=== PATIENT | male | born 1950 ===

== ENCOUNTER 2020-11-10 09:24 | Outpatient (REF) | payer MEDICARE, SELFPAY ==
[2020-11-10 10:02] LABS: MANUAL DIFF FLAG NO
[2020-11-10 10:24] LABS: Basophils Absolute Auto 0.1 X10*3/uL (0.0-0.2); Basophils Percent Auto 1.1 % (0-2); Eosinophils Absolute Auto 0.4 X10*3/uL (0.0-0.4); Hemoglobin 14.5 g/dl (14.0-18.0); Imm Gran Abs Auto 0.02 X10*3/uL (0.00-0.03); Imm Gran Pct Auto 0.3 % (0.0-0.4); Lymphocytes Absolute Auto 2.2 X10*3/uL (1.2-4.9); Lymphocytes Percent Auto 30.6 % (20-40); Mean Corpuscular Hemoglobin 30.1 pg (27.0-33.0); Mean Corpuscular Volume 91.5 fL (80-98); Mean Platelet Volume 11.9 fL (9.4-12.4); Monocytes Absolute Auto 0.4 X10*3/uL (0.1-1.2); Monocytes Percent Auto 6.1 % (2-11); Neutrophils Percent Auto 55.9 % (45-73); Platelet Count 172 X10*3/uL (160-400); Red Blood Count 4.81 X10*6/uL (4.60-5.80); White Blood Count 7.2 X10*3/uL (4.8-10.8)
[2020-11-10 10:30] LABS: Estimated Average Glucose 157 mg/dL; Hemoglobin A1c % 7.1 %
[2020-11-10 11:04] LABS: Alanine Aminotransferase 13 U/L (0-40); Albumin Level 4.4 g/dL (3.5-5.0); Alkaline Phosphatase 39 U/L (39-117); Anion Gap 13 (12-20); Aspartate Amino Transferase 21 U/L (5-37); Bilirubin Total 0.5 mg/dL (0.0-1.0); Blood Urea Nitrogen 22 mg/dL (9-16); Calcium 9.7 mg/dL (8.4-10.2); Carbon Dioxide 25 mmol/L (22-29); Chloride 103 mmol/L (96-108); Cholesterol 171 mg/dL; Estimated Glomerular Filt Rate 56; Glucose Fasting 131 mg/dL (60-99); HDL Cholesterol 31 mg/dL; LDL Cholesterol Calculated 114 mg/dl; Potassium 4.8 mmol/L (3.3-5.1); Sodium 136 mmol/L (135-145); Total Protein 7.6 g/dL (6.5-8.0); Triglycerides 131 mg/dL
[2020-11-10 11:06] LABS: Creatinine Urine 161.05 mg/dL; Microalbum/Creatinine Ratio Ur 3.1 ug/mg cr
[2020-11-10 11:28] LABS: TSH reflex Free T4 1.01 uIU/mL (0.32-4.0)
[2020-11-10 11:35] LABS: Folate 13.3 ng/mL (> or = 4.0); Vitamin B12 313 pg/mL (200-900)
[2020-11-14 17:33] LABS: Vitamin D 25-OH, D2 <4 ng/mL; Vitamin D 25-OH, D3 25 ng/mL; Vitamin D 25-OH, Total 25 ng/mL (30-100)
[2020-11-15 12:31] LABS: Testosterone, Free 50.7 pg/mL (30.0-135.0); Testosterone, Total 461 ng/dL (250-1100)
== END 2020-11-10 09:25 | disposition home or self-care (01) ==
LOC: HO.LAB 09:24
PROVIDERS: PCP Internal Medicine; Visit Provider Internal Medicine
DX: E11.9 Type 2 diabetes mellitus without complications (principal); E55.9 Vitamin D deficiency, unspecified; D64.9 Anemia, unspecified; E78.5 Hyperlipidemia, unspecified
CPT/HCPCS: 36415; 80053; 80061; 82043; 82306; 82607; 82746; 83036; 84402; 84403; 84443; 85025

== ENCOUNTER 2023-04-23 09:24 | Outpatient (AMB) | payer MEDICARE, MEDICAID, SELFPAY ==
[2023-04-23 09:26] VITALS: BP 140/82; PULSE 76; O2SAT 99; BMI 31.5
--- NOTE | 2023-04-23 09:26 | MHC.PC.OV ---
Vital Signs 04/23/23 09:26 Height 5 ft 7.5 in Weight 204 lb 0.2 oz BMI 31.5 BP 140/82 H Blood Pressure Location Lt brachial Position Sitting Pulse 76 Pulse Source Pulse Oximeter Pulse Oximetry (%) 99 Oxygen Delivery Method Room Air Intake Visit Reasons: Medication Follow Up Entertainment Musician Required: Yes Entertainment Musician Language: Citizen Of [place] Allergies No Known Allergies Allergy (Verified 04/23/23 09:52) Medication List - Last Reconciled 04/23/23 by GIANNI Dela Cruz blood sugar diagnostic (OneTouch Verio test strips) Test 3 times Daily cholecalciferol (vitamin D3) 50 mcg PO DAILY 90 days ibuprofen 800 mg PO Q8H PRN 30 days lancets (FreeStyle Lancets) Test 3 times Daily lisinopril 10 mg PO DAILY 90 days metformin 850 mg PO DAILY 90 days paroxetine HCl 20 mg PO DAILY 90 days pravastatin 10 mg PO DAILY 90 days Tobacco use date assessed: 04/23/23 Fall risk assessment: No Falls in past year Last assessed Fall Risk: 04/23/23 HPI Medication Follow Up HPI Details Patient is a 73-year-old male who presents today to follow-up on his medications. Patient of Dr. Zamudio. Medical history significant for hypercholesterolemia, depression, diabetes, hypertension. Patient reports that he is compliant with medications and denies side effects. Patient will call for diabetic eye exam. Denies shortness of breath or chest pain. 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 [facility] Medical History Mild recurrent major depression Chronic fatigue Back pain Depression Pure hypercholesterolemia Diabetes mellitus Essential hypertension Surgical History History of surgery on arm History of appendectomy Family History Father No problems noted. Mother Hypertension Stroke Maternal Aunt Diabetes Social History Housing: Apartment Alcohol intake: never Patient Tobacco Use Status: Never used Tobacco e-Cigarette/Vaping Use: Never Used Second Hand Smoke Exposure: No service: No Current occupational status: disabled Cognitive needs: No Hearing needs: No Vision needs: No Questionnaire PHQ-9 Over the last 2 weeks, how often have you been bothered by any of the following problems? 1. Little interest or pleasure in doing things: not at all 2. Feeling down, depressed, or hopeless: not at all 3. Trouble falling or staying asleep, or sleeping too much: not at all 4. Feeling tired or having little energy: not at all 5. Poor appetite or overeating: not at all 6. Feeling bad about yourself - or that you are a failure or have let yourself or your family down: not at all 7. Trouble concentrating on things, such as reading the newspaper or watching television: not at all 8. Moving or speaking so slowly that other people could have noticed. Or the opposite - being so fidgety or restless that you have been moving around a lot more than usual: not at all 9. Thoughts that you would be better off or of hurting yourself in some way: not at all Total score: 0 Depression Screening Interpretation: Negative Depression Screening Done: Yes 76748 - PHQ-9 Billing: Yes Source: Developed by Drs. Marco A Oneill, Ania Marcano, Varghese Bran and colleagues, with an educational gabriella from [employer]. Thrive Questionnaire Date Thrive assessed: 11/09/20 AUDIT C Alcohol Use Questionnaire (AUDIT-C) 1. How often do you have a drink containing alcohol?: Never 3. How often do you have six or more drinks on one occasion?: Never Total Score: 0 Score Reviewed/Action Taken: No JEMAL-7 AMB Questionnaire JEMAL-7 Date JEMAL - 7 assessed: 04/23/23 Feeling nervous, anxious, or on edge: 0 = Not at all Not being able to stop or control worryin = Not at all Worrying too much about different things: 0 = Not at all Trouble relaxin = Not at all Being so restless that it is hard to sit still: 0 = Not at all Becoming easily annoyed or irritable: 0 = Not at all Feeling afraid as if something awful might happen: 0 = Not at all Total JEMAL-7 score (0-4 normal; 5-9 mild; 10-14 moderate; 15-21 severe): 0 Source: Developed by Ania Baxter. Jeet, Varghese Bran and colleagues, with an educational gabriella from [employer]. JEMAL-7 Assessment Billing JEMAL-7 Assessment Tool: JEMAL-7 Assessment 14597 Review of Systems Const Denies body aches, Denies chills, Denies fever(s) and Denies headache(s) ENT Denies dizziness, Denies otalgia, Denies headache(s), Denies nasal discharge, Denies sinus pain and Denies sore throat Card Denies chest pain, Denies edema, Denies lightheadedness and Denies dyspnea Resp Denies cough, Denies dyspnea and Denies wheezing GI Denies abdominal pain Denies dysuria Musc Denies myalgias Neuro Denies dizziness and Denies headache(s) Aller/Immun Denies wheezing Physical exam (Primary Care) Vital Signs: Last Vital Signs Pulse 76 04/23/23 09:26 BP 140/82 H 04/23/23 09:26 Pulse Ox 99 04/23/23 09:26 Oxygen Delivery Method Room Air 04/23/23 09:26 BMI result Body Mass Index 31.5 Tobacco/Smoking Status: Tobacco use Status Tobacco use date assessed 04/23/23 04/23/23 09:27 Patient Tobacco Use Status Never used Tobacco 04/23/23 09:26 e-Cigarette/Vaping Use Never Used 04/23/23 09:26 PHQ-9: PHQ-9 Score PHQ-9: Total score 0 04/23/23 09:55 Depression Screening Interpretation: Negative Thrive Assessment: Date of Thrive Assessment Date Thrive assessed 11/09/20 04/23/23 09:26 Const General: cooperative and no acute distress Orientation/consciousness: patient oriented x3 HENMT Head: Yes normocephalic and Yes atraumatic Face and sinus: Yes sinuses nontender Mouth: oropharynx normal and moist mucous membranes Throat: Yes posterior oropharynx normal Eyes General: appearance normal, both eyes and all related structures Neck Neck: Yes normal visual inspection and Yes full ROM Resp Effort & Inspection: normal respiratory effort and able to speak in complete sentences Auscultation: clear to auscultation bilaterally, no crackles, no rales, no rhonchi and no wheezes Cardio Rate: regular rate Rhythm: regular rhythm Heart sounds: S1 normal heart sound present and S2 normal heart sound present GI Auscultation: normal bowel sounds Skin General skin exam: no rashes or lesions noted Neuro General: patient oriented x3 Gait exam (Neuro): Normal gait present Extrem General: Yes full ROM and No edema Results AMB Hemoglobin A1c AMB Hemoglobin A1c 6.9 % Last Edit by JAC Vann on 04/23/23 09:56 Results Reviewed Results Reviewed: Laboratory Last Values Hgb A1c (Clinic) 6.9 % (4.0-6.0) H 04/23/23 09:26 Assessment and Plan Assessment & Plan (1) Mild recurrent major depression: Code(s): F33.0 - Major depressive disorder, recurrent, mild Plan: Stable with paroxetine (2) Essential hypertension: Code(s): I10 - Essential (primary) hypertension Plan: Goal BP equal or less than 140/90 Continue lisinopril Low-sodium diet (3) Diabetes mellitus: Code(s): E11.9 - Type 2 diabetes mellitus without complications Qualifiers: Diabetes mellitus type: type 2 Diabetes mellitus shelter insulin use: without 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 use Diabetes mellitus complication status: without complication Qualified Code(s): E11.9 - Type 2 diabetes mellitus without complications Plan: A1c 6.9 today, goal less than 7 Continue metformin Low-carbohydrate diet (4) Pure hypercholesterolemia: Code(s): E78.00 - Pure hypercholesterolemia, unspecified Plan: Continue pravastatin Low-cholesterol diet Lipid panel ordered Orders: Orders Microalbumin, Random (w Creat) Today E11.9 - Type 2 diabetes mellitus without complications AMB Hemoglobin A1c Today E11.9 - Type 2 diabetes mellitus without complications Lipid Panel Today E78.00 - Pure hypercholesterolemia, unspecified Comprehensive [place]. Panel Fast Today I10 - Essential (primary) hypertension Coding Level of Care Code Est Pt Level 4 (07260) Diagnoses Mild recurrent major depression F33.0 Essential hypertension I10 Type 2 diabetes mellitus without complication, without long-term current use of insulin E11.9 Diabetes mellitus type: type 2 Diabetes mellitus shelter insulin use: without 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 use Diabetes mellitus complication status: without complication Pure hypercholesterolemia E78.00 Additional Codes JEMAL-7 Assessment Billing - JEMAL-7 Assessment Tool: JEMAL-7 Assessment 32644 ([id number])
== END 2023-04-23 11:27 | disposition home or self-care (01) ==
PROVIDERS: PCP Internal Medicine; Visit Provider Nurse Practitioner Family
DX: E11.9 Type 2 diabetes mellitus without complications (principal); F33.0 Major depressive disorder, recurrent, mild; I10 Essential (primary) hypertension; E78.00 Pure hypercholesterolemia, unspecified
CPT/HCPCS: 83036; 99214

== ENCOUNTER 2023-08-01 10:26 | Outpatient (REF) | payer OTHER, SELFPAY ==
[2023-08-01 12:30] LABS: Alanine Aminotransferase 10 U/L (0-40); Albumin Level 4.3 g/dL (3.5-5.0); Alkaline Phosphatase 44 U/L (39-117); Anion Gap 12 (12-20); Aspartate Amino Transferase 17 U/L (5-37); Bilirubin Total 0.5 mg/dL (0.0-1.0); Blood Urea Nitrogen 27 mg/dL (9-16); Calcium 10.1 mg/dL (8.4-10.2); Carbon Dioxide 27 mmol/L (22-29); Chloride 105 mmol/L (96-108); Cholesterol 192 mg/dL (<200); Estimated Glomerular Filt Rate 58; Glucose Fasting 129 mg/dL (60-99); HDL Cholesterol 34 mg/dL (>40); LDL Cholesterol Calculated 144 mg/dL (<100); Potassium 4.3 mmol/L (3.3-5.1); Sodium 140 mmol/L (135-145); Total Protein 7.9 g/dL (6.5-8.0); Triglycerides 72 mg/dL (<150)
[2023-08-01 13:01] LABS: Creatinine Urine 204.89 mg/dL; Microalbum/Creatinine Ratio Ur 6.8 ug/mg cr (<30)
== END 2023-08-01 10:27 | disposition home or self-care (01) ==
LOC: HO.LAB 10:26
PROVIDERS: PCP Internal Medicine; Visit Provider Nurse Practitioner Family
DX: E11.9 Type 2 diabetes mellitus without complications (principal); E78.00 Pure hypercholesterolemia, unspecified; I10 Essential (primary) hypertension
CPT/HCPCS: 36415; 80053; 80061; 82043; 82570

== ENCOUNTER 2023-08-27 10:14 | Outpatient (AMB) | payer MEDICARE, MEDICAID, SELFPAY ==
--- NOTE | 2023-08-27 10:19 | MHC.PC.OV ---
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 Accompanied by: Self / Same As Patient Allergies No Known Allergies Allergy (Verified 08/27/23 10:38) Medication List - Last Reconciled 08/27/23 by Nahomy Ovalles MD blood sugar diagnostic (True Metrix Glucose Test Strip) Use 1 test strip once a day blood sugar diagnostic (OneTouch Verio test strips) Use 1 test strip once a day blood-glucose meter (OneTouch Verio Flex Meter) As directed cholecalciferol (vitamin D3) 50 mcg PO DAILY 90 days ibuprofen 800 mg PO Q8H PRN 30 days lancets (FreeStyle Lancets) Test 3 times Daily lancets Use 1 lancet once a day lisinopril 10 mg PO DAILY 90 days metformin 850 mg PO DAILY 90 days paroxetine HCl 20 mg PO DAILY 90 days pravastatin 10 mg PO DAILY 90 days Tobacco use date assessed: 08/27/23 Fall risk assessment: No Falls in past year Last assessed Fall Risk: 08/27/23 Dental Screening Dental Screen Date: 08/27/23 Did you have a dental visit in the last 12 months?: Yes Did you have a dental problem in the last 6 months where you did not have access to dental care?: No Was dental information given to patient?: Patient has dentist HPI HPI Comments History of Present Illness Details This is a 73-year-old male with diabetes mellitus type 2, mild recurrent major depression, hypertension and pure hypercholesterolemia that comes today for follow-up on his conditions. A1c within goal. Depression stable with paroxetine. Blood pressure well controlled with lisinopril. LDL not on goal and I will change pravastatin 10 mg to simvastatin 20 mg. Denies any chest pain or shortness of breath. No fever or cough. Compliant with medications. [facility] Medical History Mild recurrent major depression Chronic fatigue Back pain Depression Pure hypercholesterolemia Diabetes mellitus Essential hypertension Surgical History History of surgery on arm History of appendectomy Family History Father No problems noted. Mother Hypertension Stroke Maternal Aunt Diabetes Social History Housing: Apartment Alcohol intake: never Patient Tobacco Use Status: Never used Tobacco e-Cigarette/Vaping Use: Never Used Second Hand Smoke Exposure: No service: No Current occupational status: disabled Cognitive needs: No Hearing needs: No Vision needs: No Questionnaire PHQ-9 Over the last 2 weeks, how often have you been bothered by any of the following problems? 1. Little interest or pleasure in doing things: not at all 2. Feeling down, depressed, or hopeless: not at all 3. Trouble falling or staying asleep, or sleeping too much: not at all 4. Feeling tired or having little energy: not at all 5. Poor appetite or overeating: not at all 6. Feeling bad about yourself - or that you are a failure or have let yourself or your family down: not at all 7. Trouble concentrating on things, such as reading the newspaper or watching television: not at all 8. Moving or speaking so slowly that other people could have noticed. Or the opposite - being so fidgety or restless that you have been moving around a lot more than usual: not at all 9. Thoughts that you would be better off or of hurting yourself in some way: not at all Total score: 0 Depression Screening Interpretation: Negative Depression Screening Done: Yes 79774 - PHQ-9 Billing: Yes Source: Developed by Drs. Marco A Oneill, Ania Marcano, Varghese Bran and colleagues, with an educational gabriella from [employer]. Thrive Questionnaire Date Thrive assessed: 08/27/23 I am a: Patient What is your living situation today?: I have a steady place to live Within the past 12 months, did the food you bought not last and you didn't have the money to get more?: Never true Within the past 12 months, did you worry whether your food would run out before you got money to buy more?: Never true Do you have trouble paying for medicines?: No Do you have trouble getting transportation to medical appointments?: No Do you have trouble paying your heating and electricity bill?: No Do you have trouble taking care of your child, family member or friend?: No Do you have trouble with day-to-day activities such as bathing, preparing meals, shopping, managing finances, etc.?: No Are you currently unemployed and looking for a job?: No Are you interested in more education?: No Please select the resources that you would like help with: None Currently or been in a relationship where the following occur: no concerns reported THRIVE Score: 0 AUDIT C Alcohol Use Questionnaire (AUDIT-C) 1. How often do you have a drink containing alcohol?: Never Total Score: 0 JEMAL-7 AMB Questionnaire JEMAL-7 Date JEMAL - 7 assessed: 08/27/23 Feeling nervous, anxious, or on edge: 0 = Not at all Not being able to stop or control worryin = Not at all Worrying too much about different things: 0 = Not at all Trouble relaxin = Not at all Being so restless that it is hard to sit still: 0 = Not at all Becoming easily annoyed or irritable: 0 = Not at all Feeling afraid as if something awful might happen: 0 = Not at all Total JEMAL-7 score (0-4 normal; 5-9 mild; 10-14 moderate; 15-21 severe): 0 Source: Developed by Drs. Marco A Oneill, Ania Marcano, Varghese Bran and colleagues, with an educational gabriella from [employer]. JEMAL-7 Assessment Billing JEMAL-7 Assessment Tool: JEMAL-7 Assessment 40785 Review of Systems Const All systems reviewed & are unremarkable except as noted in HPI and below Eyes Reports no additional complaints, Denies change in vision and Denies other visual disturbances Card Denies chest pain at rest, Denies chest pain with activity, Denies edema, Denies irregular heart rhythm, Denies claudication, Denies dyspnea, Denies dyspnea on exertion, Denies orthopnea, Denies paroxysmal nocturnal dyspnea and Denies slow heart rate Resp Denies cough, Denies dyspnea and Denies dyspnea on exertion GI Denies abdominal pain, Denies change in bowel habits, Denies excessive flatus, Denies nausea and Denies vomiting Denies urinary hesitancy, Denies urinary incontinence and Denies urinary urgency Physical exam (Primary Care) Vital Signs: Last Vital Signs BP 130/80 08/27/23 10:20 BMI result Body Mass Index 31.8 Tobacco/Smoking Status: Tobacco use Status Tobacco use date assessed 08/27/23 08/27/23 10:28 Patient Tobacco Use Status Never used Tobacco 08/27/23 10:28 e-Cigarette/Vaping Use Never Used 08/27/23 10:28 PHQ-9: PHQ-9 Score PHQ-9: Total score 0 08/27/23 10:41 Depression Screening Interpretation: Negative Thrive Assessment: Date of Thrive Assessment Date Thrive assessed 08/27/23 08/27/23 10:28 Currently or been in a relationship where the following occur: no concerns reported Resp Effort & Inspection: normal respiratory effort Auscultation: clear to auscultation bilaterally Cardio Jugular venous distension: no JVD Rate: regular rate Rhythm: regular rhythm Heart sounds: S1 normal heart sound present and S2 normal heart sound present Extrem General: Yes full ROM Psych Appearance: grossly normal Results AMB Hemoglobin A1c AMB Hemoglobin A1c 6.2 % Last Edit by JAC Juarez on 08/27/23 10:31 Results Reviewed Results Reviewed: Laboratory Last Values Hgb A1c (Clinic) 6.2 % (4.0-6.0) H 08/27/23 10:19 Assessment and Plan Assessment & Plan (1) Diabetes mellitus: Code(s): E11.9 - Type 2 diabetes mellitus without complications Qualifiers: Diabetes mellitus type: type 2 Diabetes mellitus skilled nursing 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 A1c goal is equal or less than 7%. (2) Mild recurrent major depression: Code(s): F33.0 - Major depressive disorder, recurrent, mild Plan: Continue paroxetine. (3) Pure hypercholesterolemia: Code(s): E78.00 - Pure hypercholesterolemia, unspecified Plan: Discontinue pravastatin 10 mg. Start simvastatin 20 mg. LDL goal is less than 70. (4) Essential hypertension: Code(s): I10 - Essential (primary) hypertension Plan: Continue lisinopril. Blood pressure goal is equal or less than 130/80. Orders: Orders Vitamin D 25-OH Total 6 Months E55.9 - Vitamin D deficiency, unspecified Comprehensive [place]. Panel Fast 6 Months E11.9 - Type 2 diabetes mellitus without complications AMB Hemoglobin A1c Today E11.9 - Type 2 diabetes mellitus without complications Lipid Panel 6 Months E78.5 - Hyperlipidemia, unspecified Microalbumin, Random (w Creat) 6 Months E11.9 - Type 2 diabetes mellitus without complications Medications: New simvastatin 20 mg PO BEDTIME 90 tabs 1RF 90 days Discontinued pravastatin Discontinued Reason: Patient Completed Course 10 mg PO DAILY 90 days 90 tabs 1RF Coding Level of Care Code Est Pt Level 4 (97349) Diagnoses Type 2 diabetes mellitus without complication, without long-term current use of insulin E11.9 Diabetes mellitus type: type 2 Diabetes mellitus skilled nursing insulin use: without skilled nursing use Diabetes mellitus complication status: without complication Mild recurrent major depression F33.0 Pure hypercholesterolemia E78.00 Essential hypertension I10 Additional Codes JEMAL-7 Assessment Billing - JEMAL-7 Assessment Tool: JEMAL-7 Assessment 61081 ([id number]) Time Spent (min) 22
[2023-08-27 10:20] VITALS: BP 130/80; BMI 31.8
== END 2023-08-27 10:50 | disposition home or self-care (01) ==
PROVIDERS: PCP Internal Medicine; Visit Provider Internal Medicine
DX: E11.9 Type 2 diabetes mellitus without complications (principal); F33.0 Major depressive disorder, recurrent, mild; E78.00 Pure hypercholesterolemia, unspecified; I10 Essential (primary) hypertension
CPT/HCPCS: 83036; 99214

== ENCOUNTER 2023-10-18 15:04 | Outpatient (REF) | payer OTHER, SELFPAY ==
--- NOTE | ~2023-10-18 | US_ITS ---
EXAMINATION: US SCROTUM CLINICAL INFORMATION: Testicular pain, unspecified. COMPARISON: None available. TECHNIQUE: A sonogram of the scrotum was performed assessing reyna-scale appearance and color Doppler flow. Spectral Doppler analysis of the arterial and venous flow were performed in the testes bilaterally. FINDINGS: RIGHT: Right testicle measures 4.0 x 2.7 x 3.0 cm, volume 17.4 mL. Parenchymal echotexture is heterogeneous. No focal testicular parenchymal lesions are visualized. Spectral Doppler analysis of the arterial and venous flow is increased in the right testis. Right epididymal head is normal in size. No right varicocele is seen. There is a mildly complex right hydrocele. LEFT: Left testicle measures 5.1 x 2.0 x 2.5 cm, volume 13.0 mL. Parenchymal echotexture is heterogeneous. No focal testicular parenchymal lesions are visualized. Spectral Doppler analysis of the arterial and venous flow is normal in the left testis. Left epididymal head is normal size. 0.4 x 0.3 x 0.4 cm epididymal head cyst is seen. No left hydrocele or varicocele is seen. US/US scrotum IMPRESSION: 1. Mildly heterogeneous testicles without a focal abnormality. 2. Mild increased vascularity of the right testicle. 3. Mildly complex right hydrocele. 4. 0.4 cm left epididymal head cyst.
== END 2023-10-18 15:05 | disposition home or self-care (01) ==
LOC: HO.US 15:04
PROVIDERS: PCP Internal Medicine; Visit Provider Internal Medicine
DX: N50.819 Testicular pain, unspecified (principal)
CPT/HCPCS: 76870

== ENCOUNTER 2023-12-26 10:03 | Outpatient (AMB) | payer OTHER, SELFPAY ==
--- NOTE | 2023-12-26 10:56 | MHC.OFFVIS ---
Intake Visit Reasons: testicular pain/hydrocele(US 10/17) Intake Note: New Patient is present for Testicular Pain/Right Hydrocele/epididymal Head Cyst Urology Med: None Antibioitic Allergies: None Blood Thinner: None Diabetic patient currently on Metformin No Recent PSA Recent A1C- 08/2023 6.2 Urine was sent to lab for Urine Culture Risk Control Analyst Required: Yes Risk Control Analyst Language: Slab Tripper Services: Risk Control Analyst Present Information Interpreted: clinical only Accompanied by: Self / Same As Patient Allergies No Known Allergies Allergy (Verified 12/26/23 11:03) Medication List - Last Reconciled 12/26/23 by Len Antunez MD blood sugar diagnostic (True Metrix Glucose Test Strip) Use 1 test strip once a day blood sugar diagnostic (OneTouch Verio test strips) Use 1 test strip once a day blood-glucose meter (OneTouch Verio Flex Meter) As directed cholecalciferol (vitamin D3) 50 mcg PO DAILY 90 days ibuprofen 800 mg PO Q8H PRN 30 days lancets (FreeStyle Lancets) Test 3 times Daily lancets Use 1 lancet once a day levofloxacin 500 mg PO Q24H 7 days lisinopril 10 mg PO DAILY 90 days metformin 850 mg PO DAILY 90 days paroxetine HCl 20 mg PO DAILY 90 days simvastatin 20 mg PO BEDTIME 90 days tamsulosin (Flomax) 0.4 mg PO BEDTIME HPI Comments Details: Miguel is here with complaints of testicular pain, he was treated for orchitis several weeks ago. He has changes in voiding, hesitency. Scrotal US 09/[address] on levaquin, and tamsulosin. [facility] Medical History Mild recurrent major depression Chronic fatigue Back pain Depression Pure hypercholesterolemia Diabetes mellitus Essential hypertension Surgical History History of surgery on arm History of appendectomy Family History Father No problems noted. Mother Hypertension Stroke Maternal Aunt Diabetes Social History Housing: Apartment Alcohol intake: never Patient Tobacco Use Status: Never used Tobacco e-Cigarette/Vaping Use: Never Used Second Hand Smoke Exposure: No service: No Current occupational status: disabled Cognitive needs: No Hearing needs: No Vision needs: No Review of Systems Const All systems reviewed & are unremarkable except as noted in HPI and below Reports no additional complaints Eyes Reports no additional complaints ENT Reports no additional complaints Card Reports no additional complaints Resp Reports no additional complaints GI Reports no additional complaints Reports as per HPI Musc Reports no additional complaints Skin/Breast Reports system reviewed and no additional complaints, except as documented Neuro Reports no additional complaints Psych Reports no additional complaints Endo Reports no additional complaints Anatoly/Lymph Reports no additional complaints Aller/Immun Reports no additional complaints Physical Exam Const General: healthy appearing, no acute distress and well developed Orientation/consciousness: patient oriented x3 HEENT Head: Yes normocephalic and Yes atraumatic Eyes Conjunctivae: conjunctivae normal Neck Neck: Yes normal visual inspection Chest Chest palpation & inspection: normal inspection of the chest Resp Effort & Inspection: normal respiratory effort Cardio Rate: regular rate GI Inspection: Yes normal to inspection Palpation (GI): Soft to palpation Other: scrotum, no cellutitis, testicles tender to palp R>L Penis: normal penis Neuro General: patient oriented x3 Psych Appearance: grossly normal Affect: normal affect Results Reviewed Results Reviewed: Date of Service: 10/18/23 US SCROTUM CLINICAL INFORMATION: Testicular pain, unspecified. COMPARISON: None available. TECHNIQUE: A sonogram of the scrotum was performed assessing reyna-scale appearance and color Doppler flow. Spectral Doppler analysis of the arterial and venous flow were performed in the testes bilaterally. FINDINGS: RIGHT: Right testicle measures 4.0 x 2.7 x 3.0 cm, volume 17.4 mL. Parenchymal echotexture is heterogeneous. No focal testicular parenchymal lesions are visualized. Spectral Doppler analysis of the arterial and venous flow is increased in the right testis. Right epididymal head is normal in size. No right varicocele is seen. There is a mildly complex right hydrocele. LEFT: Left testicle measures 5.1 x 2.0 x 2.5 cm, volume 13.0 mL. Parenchymal echotexture is heterogeneous. No focal testicular parenchymal lesions are visualized. Spectral Doppler analysis of the arterial and venous flow is normal in the left testis. Left epididymal head is normal size. 0.4 x 0.3 x 0.4 cm epididymal head cyst is seen. No left hydrocele or varicocele is seen. IMPRESSION: 1. Mildly heterogeneous testicles without a focal abnormality. 2. Mild increased vascularity of the right testicle. 3. Mildly complex right hydrocele. 4. 0.4 cm left epididymal head cyst. Assessment & Plan Assessment & Plan (1) Orchitis: Code(s): N45.2 - Orchitis Category: Medical (2) Testicular pain: Code(s): N50.819 - Testicular pain, unspecified Category: Medical (3) BPH loc w urin obs/LUTS: Code(s): N40.1 - Benign prostatic hyperplasia with lower urinary tract symptoms Category: Medical Plan Levaquin, tamsulosin, US renal/bladder, PSA Orders: Orders Urine Culture 12/26/23 N39.0 - Urinary tract infection, site not specified AMB Urinalysis Automated 12/26/23 Z13.9 - Encounter for screening, unspecified Medications: New levofloxacin 500 mg PO Q24H 7 tabs 0RF 7 days tamsulosin (Flomax) 0.4 mg PO BEDTIME 90 caps 1RF Coding Level of Care Code New Pt Level 4 (73056) Diagnoses Orchitis N45.2 Testicular pain N50.819 BPH loc w urin obs/LUTS N40.1
== END 2023-12-26 11:56 | disposition home or self-care (01) ==
PROVIDERS: PCP Internal Medicine; Visit Provider Urology
DX: N45.2 Orchitis (principal); N50.819 Testicular pain, unspecified; N40.1 Benign prostatic hyperplasia with lower urinary tract symptoms
CPT/HCPCS: 99204

== ENCOUNTER 2023-12-26 10:03 | Outpatient (REF) | payer OTHER, SELFPAY | END 2023-12-26 10:04 | disposition home or self-care (01) | LOC: HO.LAB 10:03 | PROVIDERS: PCP Internal Medicine; Visit Provider Urology | DX: N39.0 Urinary tract infection, site not specified (principal) | CPT/HCPCS: 87086; 87088; 87186; 99202 ==

== ENCOUNTER 2024-02-27 10:36 | Outpatient (AMB) | payer OTHER, SELFPAY ==
[2024-02-27 10:49] VITALS: BP 120/82; BMI 32.2
--- NOTE | 2024-02-27 10:49 | A.OFFPC_ITS ---
Vital Signs 02/27/24 10:49 Height 5 ft 7.5 in Weight 209 lb BMI 32.2 BP 120/82 Blood Pressure Location Lt brachial Position Sitting Intake Visit Reasons: dm Intake Note: Patient here for a follow up DM Tubular Splitting Machine Tender Required: No Accompanied by: Self / Same As Patient Allergies No Known Allergies Allergy (Verified 02/27/24 10:59) Medication List - Last Reconciled 02/27/24 by Nahomy Ovalles MD blood sugar diagnostic (True Metrix Glucose Test Strip) Use 1 test strip once a day blood sugar diagnostic (OneTouch Verio test strips) Use 1 test strip once a day blood-glucose meter (OneTouch Verio Flex Meter) As directed cholecalciferol (vitamin D3) 50 mcg PO DAILY 90 days ibuprofen 800 mg PO Q8H PRN 30 days lancets (FreeStyle Lancets) Test 3 times Daily lancets Use 1 lancet once a day lisinopril 10 mg PO DAILY 90 days metformin 850 mg PO DAILY 90 days paroxetine HCl 20 mg PO DAILY 90 days simvastatin 20 mg PO BEDTIME 90 days tamsulosin (Flomax) 0.4 mg PO BEDTIME Tobacco use date assessed: 08/27/23 Fall risk assessment: 1 Fall in past year Last assessed Fall Risk: 02/27/24 Dental Screening Dental Screen Date: 02/27/24 Did you have a dental visit in the last 12 months?: Yes Did you have a dental problem in the last 6 months where you did not have access to dental care?: No Was dental information given to patient?: Patient has dentist HPI HPI Comments History of Present Illness Details This is a 73-year-old male with diabetes mellitus type 2, hypertension, pure hypercholesterolemia mild recurrent major depression that comes today complaining of left knee pain that has been present for few months. He feels unstable while walking due to left knee giving up. Will order x-ray and send him to ortho. Will order TENS unit for arthritis which he has use in the past and did work for him. A1c within goal. Blood pressure stable but he complains that blood pressure has been on the lower side and. Use and lisinopril. I will restart him on low-dose lisinopril. LDL not on goal and I did start him on statins. Depression stable with paroxetine. [facility] Medical History (Updated 02/27/24 @ 11:08 by Nahomy Ovalles MD) Mild recurrent major depression Chronic fatigue Back pain Depression Pure hypercholesterolemia Diabetes mellitus Essential hypertension Surgical History History of surgery on arm History of appendectomy Family History Father No problems noted. Mother Hypertension Stroke Maternal Aunt Diabetes Social History Housing: Apartment Alcohol intake: never Patient Tobacco Use Status: Never used Tobacco e-Cigarette/Vaping Use: Never Used Second Hand Smoke Exposure: No service: No Current occupational status: disabled Cognitive needs: No Hearing needs: No Vision needs: Yes Questionnaire Thrive Questionnaire Date Thrive assessed: 08/27/23 Are you currently unemployed and looking for a job?: Yes JEMAL-7 AMB Questionnaire JEMAL-7 Date JEMAL - 7 assessed: 08/27/23 Source: Developed by Drs. Marco A Oneill, Ania Marcano, Varghese Bran and colleagues, with an educational gabriella from [employer]. Review of Systems Const All systems reviewed & are unremarkable except as noted in HPI and below Card Denies chest pain at rest, Denies chest pain with activity, Denies edema, Denies irregular heart rhythm, Denies claudication, Denies dyspnea, Denies dyspnea on exertion, Denies orthopnea, Denies paroxysmal nocturnal dyspnea and Denies slow heart rate Resp Denies cough, Denies dyspnea and Denies dyspnea on exertion Physical exam (Primary Care) Vital Signs: Last Vital Signs BP 120/82 02/27/24 10:49 BMI result Body Mass Index 32.2 BMI Assessment/Plan discussion: High BMI High, discussed plan: lifestyle, weight reduction, dietary and physical activity Tobacco/Smoking Status: Tobacco use Status Tobacco use date assessed 08/27/23 02/27/24 10:53 Patient Tobacco Use Status Never used Tobacco 02/27/24 10:53 e-Cigarette/Vaping Use Never Used 02/27/24 10:53 Thrive Assessment: Date of Thrive Assessment Date Thrive assessed 08/27/23 02/27/24 10:53 Resp Effort & Inspection: normal respiratory effort Auscultation: clear to auscultation bilaterally Cardio Jugular venous distension: no JVD Rate: regular rate Rhythm: regular rhythm Heart sounds: S1 normal heart sound present and S2 normal heart sound present Extrem General: Yes full ROM Office Procedures Flu Questionnaire Does the patient have a severe egg allergy?: No Results AMB Hemoglobin A1c AMB Hemoglobin A1c 7.0 % Last Edit by JAC Juarez on 02/27/24 10:5 6 Immunizations Fluarix Triv [id number] (PF) 45 mcg (15 mcg x 3)/0.5 mL IM syringe Performing Provider: Nahomy Ovalles MD [facility] Documented (not given) by: JAC Juarez on 02/27/24 10:54 Reason Not Given: Patient Refused Results Reviewed Results Reviewed: Laboratory Last Values Hgb A1c (Clinic) 7.0 % (4.0-6.0) H 02/27/24 10:54 Coding Level of Care Code Est Pt Level 4 (72347) Complex EM visit Add On G2211 Diagnoses Mild recurrent major depression F33.0 Essential hypertension I10 Type 2 diabetes mellitus without complication, without long-term current use of insulin E11.9 Diabetes mellitus type: type 2 Diabetes mellitus fci insulin use: without fci use Diabetes mellitus complication status: without complication Pure hypercholesterolemia E78.00 Left knee pain M25.562 Time Spent (min) 23 Assessment & Plan Assessment & Plan (1) Mild recurrent major depression: Code(s): F33.0 - Major depressive disorder, recurrent, mild Category: Medical Plan: Continue paroxetine. (2) Essential hypertension: Code(s): I10 - Essential (primary) hypertension Category: Medical Plan: Decrease lisinopril to 2.5 mg. Blood pressure goal is equal or less than 130/80. (3) Diabetes mellitus: Code(s): E11.9 - Type 2 diabetes mellitus without complications Category: Medical Qualifiers: Diabetes mellitus type: type 2 Diabetes mellitus fci insulin use: without terminal clerk use Diabetes mellitus complication status: without complication Qualified Code(s): E11.9 - Type 2 diabetes mellitus without complications Plan: Continue metformin. A1c goal is equal or less than 7%. (4) Pure hypercholesterolemia: Code(s): E78.00 - Pure hypercholesterolemia, unspecified Category: Medical Plan: Continue statins. Repeat lipid panel. LDL goal is less than 70. (5) Left knee pain: Code(s): M25.562 - Pain in left knee Category: Medical Plan: X-ray ordered. Referred to Ortho. Orders: Orders AMB Hemoglobin A1c Today E11.9 - Type 2 diabetes mellitus without complications Comprehensive [place]. Panel Fast Today E11.9 - Type 2 diabetes mellitus without complications Influenza [id number] Immunization Today Z23 - Encounter for immunization XR knee LT 2V Today M25.562 - Pain in left knee Microalbumin, Random (w Creat) Today R80.9 - Proteinuria, unspecified Referrals Orthopedics Referral M25.562 - Pain in left knee Medications: New lisinopril 2.5 mg PO DAILY 90 tabs 1RF 90 days loratadine-pseudoephedrine 5-120 mg ER (Claritin-D 12 Hour) 1 tab PO Q12H PRN 10 tabs 0RF allergy symptoms 5 days TENS units (TENS 502 device) As directed 1 ea 0RF M19.90 - Unspecified osteoarthritis, unspecified site Discontinued 2 lisinopril Discontinued Reason: Patient Completed Course 10 mg PO DAILY 90 days 90 tabs 3RF
== END 2024-02-27 11:14 | disposition home or self-care (01) ==
PROVIDERS: PCP Internal Medicine; Visit Provider Internal Medicine
DX: F33.0 Major depressive disorder, recurrent, mild (principal); I10 Essential (primary) hypertension; E11.9 Type 2 diabetes mellitus without complications; E78.00 Pure hypercholesterolemia, unspecified; M25.562 Pain in left knee; Z23 Encounter for immunization

== ENCOUNTER → 2024-02-27 10:36 | Outpatient (BNVA) | payer OTHER, SELFPAY | PROVIDERS: PCP Internal Medicine; Visit Provider Internal Medicine | DX: F33.0 Major depressive disorder, recurrent, mild (principal); I10 Essential (primary) hypertension; E11.9 Type 2 diabetes mellitus without complications; E78.00 Pure hypercholesterolemia, unspecified; M25.562 Pain in left knee | CPT/HCPCS: 83036; 90471; 99212 ==

== ENCOUNTER 2024-03-19 12:11 | Outpatient (REF) | payer OTHER, SELFPAY | END 2024-03-19 12:12 | disposition home or self-care (01) | LOC: HO.US 12:11 | PROVIDERS: PCP Internal Medicine; Visit Provider Urology | DX: N40.1 Benign prostatic hyperplasia with lower urinary tract symptoms (principal); M25.562 Pain in left knee | CPT/HCPCS: 73560; 76775 ==

== ENCOUNTER 2024-03-20 15:15 | Outpatient (REF) | payer OTHER, SELFPAY | END 2024-03-20 15:16 | disposition home or self-care (01) | LOC: HO.US 15:15 | PROVIDERS: PCP Internal Medicine; Visit Provider Urology | DX: Z13.89 Encounter for screening for other disorder (principal) ==

== ENCOUNTER 2024-03-25 14:31 | Outpatient (REF) | payer OTHER, SELFPAY ==
--- NOTE | ~2024-03-25 | US_ITS ---
EXAMINATION: US PELVIS LIMITED (BLADDER) CLINICAL INFORMATION: BPH. COMPARISON: None available. TECHNIQUE: Real-time imaging of the bladder. FINDINGS: BLADDER: Well distended and normal. Bladder wall was trabeculated. Bilateral ureteral jets are demonstrated. Prevoid bladder volume is 261 mL. Postvoid bladder volume is 39 mL. PROSTATE: Mild prostatomegaly at 36 cc US/US bladder IMPRESSION: Mild BPH with trabeculated bladder wall and 39 cc postvoid residual. Electronically signed by: Peter Lin MD 04/20/2024 08:49 PM EST
[2024-03-25 17:24] LABS: Alanine Aminotransferase 25 U/L (0-40); Albumin Level 4.2 g/dL (3.5-5.0); Alkaline Phosphatase 39 U/L (39-117); Anion Gap 13 (12-20); Aspartate Amino Transferase 30 U/L (5-37); Bilirubin Total 0.3 mg/dL (0.0-1.0); Blood Urea Nitrogen 19 mg/dL (9-16); Carbon Dioxide 25 mmol/L (22-29); Chloride 100 mmol/L (96-108); Cholesterol 102 mg/dL (<200); Estimated Glomerular Filt Rate > 60; Glucose Fasting 132 mg/dL (60-99); HDL Cholesterol 35 mg/dL (>40); LDL Cholesterol Calculated 49 mg/dL (<100); Sodium 133 mmol/L (135-145); Total Protein 7.8 g/dL (6.5-8.0); Triglycerides 90 mg/dL (<150)
[2024-03-25 17:32] LABS: Vitamin D 25-OH Total 31.8 ng/mL (>30)
[2024-03-25 17:33] LABS: PSA,Total (Free>4and<10) 1.24 ng/mL (0.00-4.00)
[2024-03-25 20:07] LABS: Creatinine Urine 27.49 mg/dL; Microalbumin Urine < 5.0 mg/L
== END 2024-03-25 14:32 | disposition home or self-care (01) ==
LOC: HO.US 14:31
PROVIDERS: PCP Internal Medicine; Visit Provider Urology
DX: N40.1 Benign prostatic hyperplasia with lower urinary tract symptoms (principal); R80.9 Proteinuria, unspecified; E55.9 Vitamin D deficiency, unspecified; E11.9 Type 2 diabetes mellitus without complications; E78.5 Hyperlipidemia, unspecified; Z12.5 Encounter for screening for malignant neoplasm of prostate
CPT/HCPCS: 36415; 76857; 80053; 80061; 82043; 82306; 82570; 84153

== ENCOUNTER 2024-03-27 10:44 | Outpatient (AMB) | payer OTHER, SELFPAY ==
--- NOTE | 2024-03-27 10:57 | MHC.OFFVIS ---
Intake Visit Reasons: 3m/US/PSA Intake Note: Patient is present for 3M/US/PSA Urology Medication:TAMSULOSIN Antibiotic Allergy:NONE Blood Thinner:NONE [employer] Required: Yes [employer] Name: [id number]--Mtsio Information Interpreted: non-clinical & clinical Allergies No Known Allergies Allergy (Verified 04/08/24 10:58) HPI Comments Details: 03/27/24-FU BPH symptoms, LV -12/26/23--Miguel initially evaluated with complaints of testicular pain, he was treated for orchitis several weeks ago. He has changes in voiding, hesitency. Scrotal US 09/2023 reviewed. treated with levaquin, and started on tamsulosin. persistent irritative urinary symptoms, UA today- Nitrite positive. empirically start augmentin. Discussed results-- PSA - 03/25/24-06.12 Bladder US results-03/25/24--PROSTATE: Mild prostatomegaly at 36 cc--Mild BPH with trabeculated bladder wall and 39 cc postvoid residual. Renal US - 03/19/24- not transcribed by Radiologist, preliminary bilateral renal cysts, right kidney question lobulated parencyma indeterminate Will request radiologist to read. [facility] Medical History (Updated 04/22/24 @ 09:02 by Len Antunez MD) Mild recurrent major depression Chronic fatigue Back pain Depression Pure hypercholesterolemia Diabetes mellitus Essential hypertension Surgical History (Updated 04/08/24 @ 11:01 by Gely Conde Zhanna) Hx of tooth extraction History of surgery on arm History of appendectomy Family History Father No problems noted. Mother Hypertension Stroke Maternal Aunt Diabetes Social History Housing: Apartment Alcohol intake: never Patient Tobacco Use Status: Never used Tobacco e-Cigarette/Vaping Use: Never Used Second Hand Smoke Exposure: No service: No Current occupational status: disabled Cognitive needs: No Hearing needs: No Vision needs: Yes Review of Systems Const All systems reviewed & are unremarkable except as noted in HPI and below Reports no additional complaints Eyes Reports no additional complaints ENT Reports no additional complaints Card Reports no additional complaints Resp Reports no additional complaints GI Reports no additional complaints Reports as per HPI Musc Reports no additional complaints Skin/Breast Reports system reviewed and no additional complaints, except as documented Neuro Reports no additional complaints Psych Reports no additional complaints Endo Reports no additional complaints Anatoly/Lymph Reports no additional complaints Aller/Immun Reports no additional complaints Results AMB Urinalysis, Automated UA Leukoctes 125 Brittny/uL Last Edit by ROSIO Echeverria on 03/27/24 13:06 UA Nitrite Positive Last Edit by Kameron Caro [facility] on 03/27/24 13:06 UA Urobilinogen 0.2 mg/dL Last Edit by Kameron Caro [facility] on 03/27/24 13:06 UA Protein 15 mg/dL Last Edit by Kameron Caro [facility] on 03/27/24 13:06 UA pH 5.5 Last Edit by Kameron Caro [facility] on 03/27/24 13:06 UA Blood 0 Matthew/uL Last Edit by Kameron Caro [facility] on 03/27/24 13:06 UA Specific [place] 1.025 Last Edit by Kameron Caro [facility] on 03/27/24 13:06 UA Ketone Positive Last Edit by Kameron Caro [facility] on 03/27/24 13:06 UA Bilirubin 0 mg/dL Last Edit by Kameron Caro [facility] on 03/27/24 13:06 UA Glucose 0 mg/dL Last Edit by Kameron Caro [facility] on 03/27/24 13:06 Results Reviewed Results Reviewed: Laboratory Last Values Urine pH (Auto) 5.5 03/27/24 13:06 Specific [place] (Auto) 1.025 03/27/24 13:06 Urine Protein (Auto) 15 mg/dL 03/27/24 13:06 Glucose (UA)(Auto) 0 mg/dL 03/27/24 13:06 Urine Ketones (Auto) Positive 03/27/24 13:06 Urine Blood (Auto) 0 Matthew/uL 03/27/24 13:06 Urine Nitrite (Auto) Positive 03/27/24 13:06 Urine Bilirubin (Auto) 0 mg/dL 03/27/24 13:06 Urine Urobilinogen (Auto) 0.2 mg/dL 03/27/24 13:06 Leukocyte Esterase (Auto) 125 Brittny/uL 03/27/24 13:06 Date of Service: 03/25/24 US PELVIS LIMITED (BLADDER) CLINICAL INFORMATION: BPH. COMPARISON: None available. TECHNIQUE: Real-time imaging of the bladder. FINDINGS: BLADDER: Well distended and normal. Bladder wall was trabeculated. Bilateral ureteral jets are demonstrated. Prevoid bladder volume is 261 mL. Postvoid bladder volume is 39 mL. PROSTATE: Mild prostatomegaly at 36 cc IMPRESSION: Mild BPH with trabeculated bladder wall and 39 cc postvoid residual. Date of Service: 10/18/23 US SCROTUM CLINICAL INFORMATION: Testicular pain, unspecified. COMPARISON: None available. TECHNIQUE: A sonogram of the scrotum was performed assessing reyna-scale appearance and color Doppler flow. Spectral Doppler analysis of the arterial and venous flow were performed in the testes bilaterally. FINDINGS: RIGHT: Right testicle measures 4.0 x 2.7 x 3.0 cm, volume 17.4 mL. Parenchymal echotexture is heterogeneous. No focal testicular parenchymal lesions are visualized. Spectral Doppler analysis of the arterial and venous flow is increased in the right testis. Right epididymal head is normal in size. No right varicocele is seen. There is a mildly complex right hydrocele. LEFT: Left testicle measures 5.1 x 2.0 x 2.5 cm, volume 13.0 mL. Parenchymal echotexture is heterogeneous. No focal testicular parenchymal lesions are visualized. Spectral Doppler analysis of the arterial and venous flow is normal in the left testis. Left epididymal head is normal size. 0.4 x 0.3 x 0.4 cm epididymal head cyst is seen. No left hydrocele or varicocele is seen. IMPRESSION: 1. Mildly heterogeneous testicles without a focal abnormality. 2. Mild increased vascularity of the right testicle. 3. Mildly complex right hydrocele. 4. 0.4 cm left epididymal head cyst. Assessment & Plan Assessment & Plan (1) Testicular pain: Code(s): N50.819 - Testicular pain, unspecified Category: Medical (2) BPH loc w urin obs/LUTS: Code(s): N40.1 - Benign prostatic hyperplasia with lower urinary tract symptoms Category: Medical (3) UTI symptoms: Code(s): R39.9 - Unspecified symptoms and signs involving the genitourinary system Category: Medical (4) Recurrent UTI: Code(s): N39.0 - Urinary tract infection, site not specified Category: Medical (5) Bilateral renal cysts: Code(s): N28.1 - Cyst of kidney, acquired Category: Medical Plan Recurrent UTI. augmentin, cont tamsulosin, fu cysto Orders: Orders AMB Urinalysis Automated 03/27/24 Z13.9 - Encounter for screening, unspecified Urine Culture 03/27/24 N39.0 - Urinary tract infection, site not specified Medications: New amoxicillin-pot clavulanate 875-125 mg 1 tab PO BID 14 tabs 0RF Patient Instructions: The patient had an opportunity to ask questions regarding treatment plan. The patient expressed understanding and agreement with the above treatment plan. The patient is aware they should contact our office by phone for worsening of their current condition or the appearance of new symptoms. Compliance is encouraged with any medications and followup testing that is ordered. It is a privilege to be allowed the opportunity to participate in the urologic care of your patient. If you have any questions or concerns regarding treatment for the above conditions please do not hesitate to contact me. The office telephone contact is [phone]. This note is constructed in part using voice recognition software. While every effort has been made to ensure accuracy vibration technician errors may have been included. Yours sincerely, Len Antunez MD Coding Level of Care Code Est Pt Level 4 (53211) Diagnoses Testicular pain N50.819 BPH loc w urin obs/LUTS N40.1 UTI symptoms R39.9 Recurrent UTI N39.0 Bilateral renal cysts N28.1
== END 2024-03-27 12:23 | disposition home or self-care (01) ==
PROVIDERS: PCP Internal Medicine; Visit Provider Urology
DX: N50.819 Testicular pain, unspecified (principal); N40.1 Benign prostatic hyperplasia with lower urinary tract symptoms; R39.9 Unspecified symptoms and signs involving the genitourinary system; N39.0 Urinary tract infection, site not specified; N28.1 Cyst of kidney, acquired
CPT/HCPCS: 99214

== ENCOUNTER 2024-03-27 10:44 | Outpatient (REF) | payer OTHER, SELFPAY | END 2024-03-27 10:45 | disposition home or self-care (01) | LOC: HO.LAB 10:44 | PROVIDERS: PCP Internal Medicine; Visit Provider Urology | DX: N39.0 Urinary tract infection, site not specified (principal); N50.819 Testicular pain, unspecified; N40.1 Benign prostatic hyperplasia with lower urinary tract symptoms; N28.1 Cyst of kidney, acquired; R39.9 Unspecified symptoms and signs involving the genitourinary system | CPT/HCPCS: 81003; 87086; 87088; 87186; 99212 ==

== ENCOUNTER 2024-04-08 10:38 | Outpatient (AMB) | payer OTHER, SELFPAY ==
--- NOTE | 2024-04-08 10:42 | A.OFFVIS_ITS ---
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 Patient reports bilateral knee pain that has been present for years with his left knee being the worse. He has used a tens unit which has provided him with relief. He was seen by his PCP who ordered x-rays and referred to orthopedics. Currently his pain in his left knee is located at the medial aspect of knee. He has cortisone injections about 4-5 years ago that provided him with relief. Microgrinder Operator Required: Yes Microgrinder Operator Services: Microgrinder Operator Present Microgrinder Operator Name: Kalia [id number] Allergies No Known Allergies Allergy (Verified 04/08/24 10:58) Medication List - Last Reconciled 04/08/24 by Sergei Mansfield PA-C blood sugar diagnostic (True Metrix Glucose Test Strip) Use 1 test strip once a day blood sugar diagnostic (OneTouch Verio test strips) Use 1 test strip once a day blood-glucose meter (OneTouch Verio Flex Meter) As directed cholecalciferol (vitamin D3) 50 mcg PO DAILY 90 days ibuprofen 800 mg PO Q8H PRN 30 days lancets (FreeStyle Lancets) Test 3 times Daily lancets Use 1 lancet once a day lisinopril 2.5 mg PO DAILY 90 days loratadine-pseudoephedrine 5-120 mg ER (Claritin-D 12 Hour) 1 tab PO Q12H PRN 5 days metformin 850 mg PO DAILY 90 days metformin 1,000 mg PO DAILY paroxetine HCl 20 mg PO DAILY 90 days pravastatin 10 mg PO BEDTIME simvastatin 20 mg PO BEDTIME 90 days tamsulosin (Flomax) 0.4 mg PO BEDTIME TENS units (TENS 502 device) As directed HPI HPI 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 He states the pain has been present for several years. He has had injections in the past. He states he is able to walk log distances, he is unable to run. He states he is active and feels the pain does limit him. [facility] Medical History (Updated 04/08/24 @ 11:19 by Sergei Mansfield PA-C) Mild recurrent major depression Chronic fatigue Back pain Depression Pure hypercholesterolemia Diabetes mellitus Essential hypertension Surgical History (Updated 04/08/24 @ 11:01 by Gely Conde Zhanna) Hx of tooth extraction History of surgery on arm History of appendectomy Family History Father No problems noted. Mother Hypertension Stroke Maternal Aunt Diabetes Social History Housing: Apartment Alcohol intake: never Patient Tobacco Use Status: Never used Tobacco e-Cigarette/Vaping Use: Never Used Second Hand Smoke Exposure: No service: No Current occupational status: disabled Cognitive needs: No Hearing needs: No Vision needs: Yes Review of Systems Const All systems reviewed & are unremarkable except as noted in HPI and below Physical Exam Vital Signs: BMI result Body Mass Index 32.1 Const General: cooperative and no acute distress Orientation/consciousness: patient oriented x3 Resp Effort & Inspection: normal respiratory effort and able to speak in complete se ntences Cardio Peripheral pulses: Peripheral pulses 2+ throughout Neuro General: patient oriented x3 Extrem Other: Left knee skin intact, no erythema or joint effusion. Varus deformity. Tenderness along the medial joint line. ROM full with crepitus. Negative steinmans. No ligamentous laxity. NVI. Results Reviewed Results Reviewed: xrays oft he left knee obtained on 03/19 show medial and PF compartment oa Assessment & Plan Assessment & Plan (1) Osteoarthritis of left knee: Code(s): M17.12 - Unilateral primary osteoarthritis, left knee Category: Medical Plan: We discussed options today which include corticosteroid injection and physical therapy. He would like to begin with physical therapy and hold off on the injection at this time. I did explain that if he fails all conservative treatment and he continues to have limitations with daily activities and chronic pain we can discuss potential surgical intervention however at this time he does not appear to be a candidate for that. Orders: Orders PT Evaluation and Treatment Today M17.12 - Unilateral primary osteoarthritis, left knee Coding Level of Care Code New Pt Level 3 (24303) Complex EM visit Add On G2211 Diagnoses Osteoarthritis of left knee M17.12
[2024-04-08 10:54] VITALS: BMI 32.1
== END 2024-04-08 11:26 | disposition home or self-care (01) ==
PROVIDERS: PCP Internal Medicine; Visit Provider Physician Assistant
DX: M17.12 Unilateral primary osteoarthritis, left knee (principal)
CPT/HCPCS: 99203; G2211

== ENCOUNTER → 2024-04-08 10:38 | Outpatient (BNVA) | payer OTHER, SELFPAY | PROVIDERS: PCP Internal Medicine; Visit Provider Physician Assistant | DX: M17.12 Unilateral primary osteoarthritis, left knee (principal) | CPT/HCPCS: 99202 ==

== ENCOUNTER 2024-05-15 09:03 | Outpatient (AMB) | payer OTHER, SELFPAY ==
--- NOTE | 2024-05-15 09:22 | MHC.OFFVIS ---
Intake Visit Reasons: cysto Intake Note: Patient is present for Cystoscopy Urology Medication:VITAMIN B12 Antibiotic Allergy:NONE Blood Thinner:NONE Lot:[id number] Exp:03/23/27 Metal Annealer Required: Yes Metal Annealer Language: Dough Brake Machine Operator Name: [id number] Information Interpreted: non-clinical & clinical Allergies No Known Allergies Allergy (Verified 05/15/24 09:23) HPI Comments Details: 05/15/24-- Cystoscopy findings: prostatic urethra obstructive-bilobar enlargement, bulbous urethra WNL, no suspicious bladder lesions visualized. BPH-Continue tamsulosin. 03/27/24-FU BPH symptoms, LV -12/26/23--Miguel initially evaluated with complaints of testicular pain, he was treated for orchitis several weeks ago. He has changes in voiding, hesitency. Scrotal US 09/2023 reviewed. treated with levaquin, and started on tamsulosin. persistent irritative urinary symptoms, UA today- Nitrite positive. empirically start augmentin. Discussed results-- PSA - 03/25/24-1. Bladder US results-03/25/24--PROSTATE: Mild prostatomegaly at 36 cc--Mild BPH with trabeculated bladder wall and 39 cc postvoid residual. Renal US - 03/19/24- not transcribed by Radiologist, preliminary bilateral renal cysts, right kidney question lobulated parencyma indeterminate Will request radiologist to read. [facility] Medical History Mild recurrent major depression Chronic fatigue Back pain Depression Pure hypercholesterolemia Diabetes mellitus Essential hypertension Surgical History Hx of tooth extraction History of surgery on arm History of appendectomy Family History Father No problems noted. Mother Hypertension Stroke Maternal Aunt Diabetes Social History Housing: Apartment Alcohol intake: never Patient Tobacco Use Status: Never used Tobacco e-Cigarette/Vaping Use: Never Used Second Hand Smoke Exposure: No service: No Current occupational status: disabled Cognitive needs: No Hearing needs: No Vision needs: Yes Review of Systems Const All systems reviewed & are unremarkable except as noted in HPI and below Reports no additional complaints Eyes Reports no additional complaints ENT Reports no additional complaints Card Reports no additional complaints Resp Reports no additional complaints GI Reports no additional complaints Reports as per HPI Musc Reports no additional complaints Skin/Breast Reports system reviewed and no additional complaints, except as documented Neuro Reports no additional complaints Psych Reports no additional complaints Endo Reports no additional complaints Anatoly/Lymph Reports no additional complaints Aller/Immun Reports no additional complaints Office Procedures Cystoscopy Consent Discussed risk and benefit or proposed procedure with the patient. Information consent for procedure given to the patient. Discussed technical aspects, risks, benefits and alternatives in full. Addressed all of the patient's questions and concerns regarding the procedure. The patient demonstrated knowledge and understanding. They wish to proceed with this procedure. Preparation The patient was prepped in the usual manner. A facility engineer was present and in the room. Genitalia was prepped with betadine solution in a sterile manner. Lidocaine Jelly 2% was placed into the urethra and 16Fr flexible Olympus cystoscope was inserted into the meatus after adequate lubrication. Procedure Time out per protocol performed. Bladder Inspection Bladder Inspection: The bladder was inspected in its entirety with utilization retroflexion displaying: Tumor(s): no suspicious bladder lesions visualized Trabeculation: Moderate with cellule changes, and diverticuli Mucosal Erthema: NA Orifices: normal shape and position Urethra: normal Cystoscopy findings: prostatic urethra obstructive-bilobar enlargement, bulbous urethra WNL, no suspicious bladder lesions visualized [id number] DISPOSABLE SCOPE URO-G FLEXIBLE SCOPE Procedure code (CPT) selection complete Office Meds lidocaine HCl 2 % mucosal jelly in applicator Performing Provider: Len Antunez MD [facility] Documented (not given) by: Len Antunez MD on 05/15/24 16:03 Dose Route Admin Location Dispensed Lot Number Expiration Date [facility] English Faculty Member 10 mL intra-urethral mL naproxen 500 mg tablet Performing Provider: Len Antunez MD [facility]forming [facility] Documented (not given) by: Len Antunez MD on 05/15/24 16:03 Dose Route Admin Location Dispensed Lot Number Expiration Date [place] English Faculty Member 500 mg PO tab ciprofloxacin HCl 500 mg tablet Performing Provider: Len Antunez MD Performing [facility] Documented (not given) by: Len Antunez MD on 05/15/24 16:03 Dose Route Admin Location Dispensed Lot Number Expiration Date NDC English Faculty Member 500 mg PO tab Results AMB Urinalysis, Automated UA Leukoctes 0 Brittny/uL Last Edit by ROSIO Echeverria on 05/15/24 09:33 UA Nitrite Negative Last Edit by ROSIO Echeverria on 05/15/24 09:33 UA Urobilinogen 0.2 mg/dL Last Edit by ROSIO Echeverira on 05/15/24 09:33 UA Protein 15 mg/dL Last Edit by ROSIO Echeverria on 05/15/24 09:33 UA pH 5.5 Last Edit by ROSIO Echeverria on 05/15/24 09:33 UA Blood 0 Matthew/uL Last Edit by ROSIO Echeverria on 05/15/24 09:33 UA Specific [place] 1.030 Last Edit by ROSIO Echeverria on 05/15/24 09:33 UA Ketone Negative Last Edit by ROSIO Echeverria on 05/15/24 09:33 UA Bilirubin 0 mg/dL Last Edit by ROSIO Echeverria on 05/15/24 09:33 UA Glucose 0 mg/dL Last Edit by ROSIO Echeverria on 05/15/24 09:33 Results Reviewed Results Reviewed: Laboratory Last Values Urine pH (Auto) 5.5 05/15/24 09:33 Specific [place] (Auto) 1.030 05/15/24 09:33 Urine Protein (Auto) 15 mg/dL 05/15/24 09:33 Glucose (UA)(Auto) 0 mg/dL 05/15/24 09:33 Urine Ketones (Auto) Negative 05/15/24 09:33 Urine Blood (Auto) 0 Matthew/uL 05/15/24 09:33 Urine Nitrite (Auto) Negative 05/15/24 09:33 Urine Bilirubin (Auto) 0 mg/dL 05/15/24 09:33 Urine Urobilinogen (Auto) 0.2 mg/dL 05/15/24 09:33 Leukocyte Esterase (Auto) 0 Brittny/uL 05/15/24 09:33 Assessment & Plan Assessment & Plan (1) Recurrent UTI: Code(s): N39.0 - Urinary tract infection, site not specified Category: Medical Plan Cystoscopy- no suspicious lesions, BPH-Continue tamsulosin. Orders: Orders AMB Urinalysis Automated 05/15/24 Z13.9 - Encounter for screening, unspecified AMB Cystoscopy 05/15/24 N39.0 - Urinary tract infection, site not specified Medications: New lidocaine HCl 2% 10 mL intra-urethral ONCE 10 mL 0RF N39.0 - Urinary tract infection, site not specified naproxen 500 mg PO ONCE 1 tab 0RF N39.0 - Urinary tract infection, site not specified ciprofloxacin HCl 500 mg PO ONCE 1 tab 0RF N39.0 - Urinary tract infection, site not specified Patient Instructions: The patient had an opportunity to ask questions regarding treatment plan. The patient expressed understanding and agreement with the above treatment plan. The patient is aware they should contact our office by phone for worsening of their current condition or the appearance of new symptoms. Compliance is encouraged with any medications and followup testing that is ordered. It is a privilege to be allowed the opportunity to participate in the urologic care of your patient. If you have any questions or concerns regarding treatment for the above conditions please do not hesitate to contact me. The office telephone contact is [phone]. This note is constructed in part using voice recognition software. While every effort has been made to ensure accuracy cyber incident responder errors may have been included. Yours sincerely, Len Antunez MD Coding Level of Care Code Procedure Only Diagnoses Recurrent UTI N39.0 CPT Codes Cystoscopy - CPT: 00035-[id number] ([id number])
== END 2024-05-15 10:05 | disposition home or self-care (01) ==
PROVIDERS: PCP Internal Medicine; Visit Provider Urology
DX: N40.1 Benign prostatic hyperplasia with lower urinary tract symptoms (principal)
CPT/HCPCS: 52000

== ENCOUNTER → 2024-05-15 09:03 | Outpatient (BNVA) | payer OTHER, SELFPAY | PROVIDERS: PCP Internal Medicine; Visit Provider Urology | DX: N39.0 Urinary tract infection, site not specified (principal) | CPT/HCPCS: 52000; 81003 ==

== ENCOUNTER 2024-06-16 13:05 | Outpatient (RCR) | payer OTHER, SELFPAY ==
--- NOTE | 2024-05-05 13:38 | MHC.PT.EP ---
[facility] [place] [facility] [address] [phone] F: [phone] F: [phone] F: [phone] F: [phone] Physical Therapy Plan of Care Date of Evaluation: 05/05/24 Date of Surgery: NA Diagnosis: LEFT knee OA (MD Dx) Assessment: Miguel is a 74 yo male who was referred by Tani Mansfield PA-C for Dx of LEFT knee OA. Impairments include pt report of pain in knees, decreased strength of quad and hamstrings, and antalgic gait pattern resulting in their inability to bend, ambulate long distances, or navigate stairs without pain. These deficits are impacting their ability to participate in community ambulation or navigating stairs. Pt will benefit from skilled PT to address impairments and meet their goals. Frequency and Duration: The patient will be seen 2X/WK X 4-6 WKS Short Term Goals: 2 weeks Patient will be able to perform HEP to independently manage condition. Heat Pump Installer Goals: 4 weeks Patient will increase b/l quad strength to 5/5 to be able to ambulate 100 ft without pain. Patient will increase b/l glute strength to 5/5 to be able to navigate stairs without limitation. Treatment Plan: Modalities to reduce pain, spasms and effusion. Manual therapy to restore motion and function. Therapeutic exercise to improve strength and flexibility. Neuromuscular re-education for posture and balance. Therapeutic activities to return to functional activities of daily living. Electronically signed by: MI MAGDALENO PT Please sign and return to therapist. Thank you for your referral.
--- NOTE | 2024-07-10 16:23 | MHC.PT.DC ---
[facility] [place] [facility] [place] [facility] [place] Office [address] [phone] F: [phone] F: [phone] F: [phone] F: [phone] Physical Therapy Discharge Report Diagnosis: LEFT knee OA (MD Dx) Date of Surgery: NA Date of Evaluation: 05/05/24 Date of Discharge: 07/10/24 Treatments to Date: 10 Cancellations to Date: No Shows to Date: Discharge Status: Patient Elected to Stop Recommend MD Follow-up Discharge Summary: Pt NEEDS TO FU WITH USMAN ASHER DIZZINESS. NO SPECIFIC PT TREATMENT DONE TODAY Pt CALLED TO CX LAST SCHEDULED APPT AND SELF DC FOR FU WITH MD LB PATRICIA Electronically signed by: MI MAGDALENO PT Please sign and return to therapist. Thank you for your referral.
== END 2024-07-10 16:24 | disposition home or self-care (01) ==
LOC: HO.PT 13:05
PROVIDERS: PCP Internal Medicine; Visit Provider Physician Assistant
DX: M17.12 Unilateral primary osteoarthritis, left knee (principal)
CPT/HCPCS: 97110; 97140; 97161; 97530; 97535

== ENCOUNTER 2024-07-02 14:02 | Outpatient (AMB) | payer OTHER, SELFPAY ==
--- NOTE | 2024-07-02 14:06 | A.OFFPC_ITS ---
Vital Signs 07/02/24 14:09 Height 5 ft 7 in Weight 210 lb BMI 32.9 BP 110/72 Blood Pressure Location Lt brachial Position Sitting Pulse 69 Pulse Source Pulse Oximeter Temp 97.1 F Temp Source Temporal Artery Scan Pulse Oximetry (%) 98 Oxygen Delivery Method Room Air Intake Visit Reasons: dm Intake Note: Patient is here to follow up on DM. 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 Allergies No Known Allergies Allergy (Verified 07/02/24 14:46) Medication List - Last Reconciled 07/02/24 by Marifer Gold PA-C blood sugar diagnostic (True Metrix Glucose Test Strip) Use 1 test strip once a day blood sugar diagnostic (OneTouch Verio test strips) Use 1 test strip once a day blood-glucose meter (Adelphic MobileTouch Verio Flex Meter) As directed cholecalciferol (vitamin D3) 50 mcg PO DAILY 90 days ibuprofen 800 mg PO Q8H PRN 30 days lancets (FreeStyle Lancets) Test 3 times Daily lancets (Adelphic MobileTouch Delica Plus Lancet) USE ONCE DAILY DIRECTED lisinopril 2.5 mg PO DAILY 90 days loratadine-pseudoephedrine 5-120 mg ER (Claritin-D 12 Hour) 1 tab PO Q12H PRN 5 days metformin 850 mg PO DAILY 90 days paroxetine HCl 20 mg PO DAILY 90 days simvastatin 20 mg PO BEDTIME 90 days tamsulosin (Flomax) 0.4 mg PO BEDTIME TENS units (TENS 502 device) As directed Tobacco use date assessed: 07/02/24 Fall risk assessment: 2 + Falls in past year Last assessed Fall Risk: 07/02/24 Dental Screening Dental Screen Date: 07/02/24 Did you have a dental visit in the last 12 months?: No Did you have a dental problem in the last 6 months where you did not have access to dental care?: No Was dental information given to patient?: No (Dentures) PFSH Medical History Mild recurrent major depression Chronic fatigue Back pain Depression Pure hypercholesterolemia Diabetes mellitus Essential hypertension Surgical History Hx of tooth extraction History of surgery on arm History of appendectomy Family History Father No problems noted. Mother Hypertension Stroke Maternal Aunt Diabetes Social History Housing: Apartment Alcohol intake: never Patient Tobacco Use Status: Never used Tobacco e-Cigarette/Vaping Use: Never Used Second Hand Smoke Exposure: No service: No Current occupational status: disabled Cognitive needs: No Hearing needs: No Vision needs: Yes Questionnaire PHQ-9 Over the last 2 weeks, how often have you been bothered by any of the following problems? 1. Little interest or pleasure in doing things: not at all 2. Feeling down, depressed, or hopeless: not at all 3. Trouble falling or staying asleep, or sleeping too much: not at all 4. Feeling tired or having little energy: not at all 5. Poor appetite or overeating: not at all 6. Feeling bad about yourself - or that you are a failure or have let yourself or your family down: not at all 7. Trouble concentrating on things, such as reading the newspaper or watching television: not at all 8. Moving or speaking so slowly that other people could have noticed. Or the opposite - being so fidgety or restless that you have been moving around a lot more than usual: not at all 9. Thoughts that you would be better off or of hurting yourself in some way: not at all Total score: 0 Depression Screening Interpretation: Negative Depression Screening Done: Yes 33995 - PHQ-9 Billing: Yes Source: Developed by Drs. Marco A Oneill, Ania Marcano, Varghese Bran and colleagues, with an educational gabriella from [employer]. Thrive Questionnaire Date Thrive assessed: 07/02/24 I am a: Patient What is your living situation today?: I have a steady place to live Within the past 12 months, did the food you bought not last and you didn't have the money to get more?: Never true Within the past 12 months, did you worry whether your food would run out before you got money to buy more?: Never true Do you have trouble paying for medicines?: No Do you have trouble getting transportation to medical appointments?: No Do you have trouble paying your heating and electricity bill?: No Do you have trouble taking care of your child, family member or friend?: No Do you have trouble with day-to-day activities such as bathing, preparing meals, shopping, managing finances, etc.?: No Are you currently unemployed and looking for a job?: No Are you interested in more education?: No Please select the resources that you would like help with: None Currently or been in a relationship where the following occur: No concerns reported THRIVE Score: 0 AUDIT C Alcohol Use Questionnaire (AUDIT-C) 1. How often do you have a drink containing alcohol?: Never Total Score: 0 Score Reviewed/Action Taken: Yes JEMAL-7 AMB Questionnaire JEMAL-7 Date JEMAL - 7 assessed: 07/02/24 Feeling nervous, anxious, or on edge: 0 = Not at all Not being able to stop or control worryin = Not at all Worrying too much about different things: 0 = Not at all Trouble relaxin = Not at all Being so restless that it is hard to sit still: 0 = Not at all Becoming easily annoyed or irritable: 0 = Not at all Feeling afraid as if something awful might happen: 0 = Not at all Total JEMAL-7 score (0-4 normal; 5-9 mild; 10-14 moderate; 15-21 severe): 0 Source: Developed by Drs. Marco A Oneill, Ania Marcano, Varghese Bran and colleagues, with an educational gabriella from [employer]. JEMAL-7 Assessment Billing JEMAL-7 Assessment Tool: JEMAL-7 Assessment 17174 Physical exam (Primary Care) Vital Signs: Last Vital Signs Temp 97.1 F 07/02/24 14:09 Pulse 69 07/02/24 14:09 BP 110/72 07/02/24 14:09 Pulse Ox 98 07/02/24 14:09 Oxygen Delivery Method Room Air 07/02/24 14:09 Care Plan Goal for BP management: <130/80 BMI result Body Mass Index 32.9 BMI Assessment/Plan discussion: High BMI High, discussed plan: lifestyle, weight reduction, dietary and physical activity Tobacco/Smoking Status: Tobacco use Status Tobacco use date assessed 07/02/24 07/02/24 14:25 Patient Tobacco Use Status Never used Tobacco 07/02/24 14:06 e-Cigarette/Vaping Use Never Used 07/02/24 14:06 PHQ-9: PHQ-9 Score PHQ-9: Total score 0 07/02/24 14:25 Depression Screening Interpretation: Negative Thrive Assessment: Date of Thrive Assessment Date Thrive assessed 07/02/24 07/02/24 14:25 Currently or been in a relationship where the following occur: No concerns reported Results AMB Hemoglobin A1c AMB Hemoglobin A1c 6.8 % Last Edit by JAC Milton on 07/02/24 14:26 Results Reviewed Results Reviewed: Laboratory Last Values Hgb A1c (Clinic) 6.8 % (4.0-6.0) H 07/02/24 14:05 Coding Level of Care Code Est Pt Level 4 (97932) Complex EM visit Add On G2211 Diagnoses Type 2 diabetes mellitus without complication, without long-term current use of insulin E11.9 Diabetes mellitus type: type 2 Diabetes mellitus assisted insulin use: without termite treater helper use Diabetes mellitus complication status: without complication Pure hypercholesterolemia E78.00 Essential hypertension I10 Mild recurrent major depression F33.0 BPH loc w urin obs/LUTS N40.1 Additional Codes PHQ-9 - 60889 - PHQ-9 Billing: Yes ([id number]) JEMAL-7 Assessment Billing - JEMAL-7 Assessment Tool: JEMAL-7 Assessment 11058 ([id number]) Assessment & Plan Assessment & Plan (1) Diabetes mellitus: Code(s): E11.9 - Type 2 diabetes mellitus without complications Category: Medical Qualifiers: Diabetes mellitus type: type 2 Diabetes mellitus termite treater helper insulin use: without termite treater helper use Diabetes mellitus complication status: without complication Qualified Code(s): E11.9 - Type 2 diabetes mellitus without complications Plan: Patient to continue metformin 850 mg daily. A1c Level goal <7.0 at 6/8. Continue current regime. F/u in 4 months for A1C recheck. Condition is chronic and stable continue to monitor. (2) Pure hypercholesterolemia: Code(s): E78.00 - Pure hypercholesterolemia, unspecified Category: Medical Plan: Discontinue pravastatin 10 mg. Patient to continue simvastatin 20 mg daily. LDL go to be less than 70. LDL on 03/25/2024 49. Condition is chronic and stable continue to monitor. (3) Essential hypertension: Code(s): I10 - Essential (primary) hypertension Category: Medical Plan: Patient to continue lisinopril 2.5 mg daily. Blood pressure at goal today under 130/80. Condition is chronic and stable continue to monitor. (4) Mild recurrent major depression: Code(s): F33.0 - Major depressive disorder, recurrent, mild Category: Medical Plan: Patient denies any exacerbations of his depression or any suicidal ideations. Patient currently on paroxetine 20 mg. Condition is chronic and stable continue to monitor. (5) BPH loc w urin obs/LUTS: Code(s): N40.1 - Benign prostatic hyperplasia with lower urinary tract symptoms Category: Medical Plan: Patient on tamsulosin 0.4 mg at bedtime. Condition is chronic and stable continue to monitor. Plan Plan - patient reports he has been taking metformin 850 mg tablets daily. There is another prescription that was sent in May of 2024 which was 1000 mg of metformin. Although I discussed this with Dr. Aurelia Molina and she reported if the patient's A1c level is 6.8 being on 850 mg of metformin daily then he can continue this regimen. Will DC the 1000 mg of metformin from the patient's [facility] dications list. - Continue Lisinopril 2.5 mg will continue for hypertension management. - It appears the patient has been taking pravastatin 10 mg and simvastatin 20 mg. Will discontinue the pravastatin 10 mg of patient to continue taking simvastatin 20 mg. - patient reports dizziness with taking tamsulosin. It appears in March he had hyponatremia of 130. Will reassess to ensure that his intermittent dizziness when he takes tamsulosin is not related to hyponatremia. - Further evaluation for dizziness; recommend basic blood tests to check for electrolyte imbalances. - Schedule laboratory follow-up to ensure efficacy of current treatments and monitor any potential side effects. Orders: Orders Complete Blood Count Auto Diff Today Z00.00 - Encounter for general adult medical examination without abnormal findings AMB Hemoglobin A1c Today E11.9 - Type 2 diabetes mellitus without complications Comprehensive Met. Panel Today Z00.00 - Encounter for general adult medical examination without abnormal findings Medications: Discontinued metformin Discontinued Reason: Duplicate 1,000 mg PO DAILY 90 days 90 tabs 1RF Patient Instructions: Patient Instructions - Continue taking Metformin 850 mg daily as blood sugar levels are stable. - Maintain Lisinopril regimen for blood pressure control. - Discontinue taking the duplicate statin prescription. - Attend the lab for upcoming tests as instructed. - Monitor symptoms of dizziness and report any significant changes. - Return for follow-up in four months or sooner if needed. Scribe Plan - Not visible on output: History of Present Illness The patient is a 74-year-old male presenting with diabetes management and medication review. The patient was diagnosed with Type 2 Diabetes Mellitus and is currently on Metformin 850 mg once daily. Earlier this year, there was a change in medication dosage to Metformin 1000 mg once daily due to an elevated HbA1c, but the patient continued taking 850 mg. The latest reported blood sugar reading was between 102-112 mg/dL. His HbA1c was previously elevated but has improved to 6.8%, which is within the target range as discussed in prior visits. The patient also reports managing Essential Hypertension with Lisinopril 2.5 mg once daily. He notes occasional dizziness upon standing, which he attributes to postural adjustments, suggesting possible side effects from Tamulosin prescribed for urinary issues. There is also mention of elevated LDL cholesterol, requiring a review of statins; however, there were conflicting medication instructions. Social History - Patient lives independently. - Walks frequently, including trips to shopping centers. - Positive family interaction noted, mentioned a cousin advising about medications. - Previously navigated difficulty with directions while traveling. Review of Systems - Cardiovascular: Denies chest pain or palpitations. - Endocrine: Denies excessive thirst. Reports controlled blood sugar levels. - Genitourinary: Denies increased frequency of urination. - Musculoskeletal: Denies joint swelling or pain. - Neurological: Reports dizziness upon sudden standing. Physical Exam Appearance: Alert. Oriented X3. No acute distress. Head: Normal external exam. Normocephalic. Atraumatic. Eyes: Pupils are equal, round, and reactive to light. Extraocular movements intact. Conjunctiva and sclera normal. Eyelids normal. Ears: External auditory canal normal. Tympanic membranes normal. Throat: Pharynx normal. Uvula midline. Moist mucous membranes. Neck: Normal inspection. Neck supple. Full range of motion. No adenopathy. Thyroid Normal. No meningeal signs. No neck mass noted. Cardiovascular: Normal heart rate and rhythm. Heart sound normal. No murmurs noted. Pulses normal throughout. Respiratory: No respiratory distress. Painless inspiration. Breath sounds normal. No wheezes/rales/rhonchi noted. Chest nontender. No accessory muscle usage noted or decreased air movement noted. Abdomen: Soft and nontender. Bowel sounds normal in all 4 quadrants. No distention noted. No organomegaly noted. No visible injury noted. Back: No costovertebral angle tenderness. Full range of motion noted. Skin: Skin warm and dry. Normal skin color. Normal skin turgor. No rashes/lesions/lacerations noted. Extremities: No lower extremity edema. Extremities exhibit normal range of motion. Extremities nontender. Neuro: Oriented X 3. No motor deficit. No sensory deficit. Reflexes normal. Normal steady gait. No neuro deficits are noted. Results - Labs: Reported blood glucose of approximately 102-112 mg/dL. Plan - Patient reports he has been taking metformin 850 mg tablets daily. There is another prescription that was sent in May of 2024 which was 1000 mg of metformin. Although I discussed this with Dr. Aurelia Molina and she reported if the patient's A1c level is 6.8 being on 850 mg of metformin daily then he can continue this regimen. Will DC the 1000 mg of metformin from the patient's medications list. - Continue Lisinopril 2.5 mg will continue for hypertension management. - It appears the patient has been taking pravastatin 10 mg and simvastatin 20 mg. Will discontinue the pravastatin 10 mg of patient to continue taking simvastatin 20 mg. - patient reports dizziness with taking tamsulosin. It appears in March he had hyponatremia of 130. Will reassess to ensure that his intermittent dizziness when he takes tamsulosin is not related to hyponatremia. - Further evaluation for dizziness; recommend basic blood tests to check for electrolyte imbalances. - Schedule laboratory follow-up to ensure efficacy of current treatments and monitor any potential side effects. Patient was informed and verbally consented to the use of an ambient scribe for clinic note documentation during this visit. Discussion Notes During the visit, I discussed with the patient the importance of managing his diabetes with current medication dosages since his HbA1c is favorable. I explained the need to discontinue one statin type due to duplicate prescriptions and reassured him that his current medication regimen for hypertension seems appropriate. I suggested watching for any continued dizziness, particularly associated with postural changes. We also discussed upcoming blood tests to monitor general health markers and ensure adequate response to treatment. I advised returning in four months for a follow-up with Dr. Zamudio and detailed the need to report any worsening symptoms or new issues that may arise. Patient Instructions - Continue taking Metformin 850 mg daily as blood sugar levels are stable. - Maintain Lisinopril regimen for blood pressure control. - Discontinue taking the duplicate statin prescription. - Attend the lab for upcoming tests as instructed. - Monitor symptoms of dizziness and report any significant changes. - Return for follow-up in four months or sooner if needed.
[2024-07-02 14:09] VITALS: BP 110/72; PULSE 69; TEMP 36.2; O2SAT 98; BMI 32.9
== END 2024-07-02 14:46 | disposition home or self-care (01) ==
PROVIDERS: PCP Internal Medicine; Visit Provider Physician Assistant Medical
DX: E11.9 Type 2 diabetes mellitus without complications (principal)

== ENCOUNTER → 2024-07-02 14:02 | Outpatient (BNVA) | payer OTHER, SELFPAY | PROVIDERS: PCP Internal Medicine; Visit Provider Physician Assistant Medical | DX: E11.9 Type 2 diabetes mellitus without complications (principal); E78.00 Pure hypercholesterolemia, unspecified; F33.0 Major depressive disorder, recurrent, mild; N40.1 Benign prostatic hyperplasia with lower urinary tract symptoms; I10 Essential (primary) hypertension | CPT/HCPCS: 83036; 96127; 99212 ==

== ENCOUNTER 2024-11-02 14:11 | Outpatient (AMB) | payer OTHER, SELFPAY ==
--- NOTE | 2024-11-02 14:15 | A.OFFPC_ITS ---
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 Accompanied by: Self / Same As Patient Allergies No Known Allergies Allergy (Verified 11/02/24 14:42) Medication List - Last Reconciled 11/02/24 by Nahomy Ovalles MD blood sugar diagnostic (True Metrix Glucose Test Strip) Use 1 test strip once a day blood sugar diagnostic (OneTouch Verio test strips) Use 1 test strip once a day blood-glucose meter (OneTouch Verio Flex Meter) As directed cholecalciferol (vitamin D3) 50 mcg PO DAILY 90 days ibuprofen 800 mg PO Q8H PRN 30 days lancets (FreeStyle Lancets) Test 3 times Daily lancets (OneTouch Delica Plus Lancet) USE ONCE DAILY DIRECTED lisinopril 2.5 mg PO DAILY 90 days metformin 850 mg PO DAILY 90 days paroxetine HCl 20 mg PO DAILY 90 days simvastatin 20 mg PO BEDTIME 90 days tamsulosin (Flomax) 0.4 mg PO BEDTIME TENS units (TENS 502 device) As directed Tobacco use date assessed: 07/02/24 Fall risk assessment: 2 + Falls in past year Last assessed Fall Risk: 11/02/24 Dental Screening Dental Screen Date: 07/02/24 HPI HPI Comments History of Present Illness Details The patient is a 74-year-old male presenting for follow-up on chronic conditions including diabetes, hypertension, hyperlipidemia, and osteoarthritis. The patient's Type 2 Diabetes Mellitus is currently managed with metformin, taken once daily. His recent HbA1c level is 6.9%, which is within the target r ai of less than 7%. He reports adherence to his medication regimen. Hypertension is controlled with current medication, and the patient is advised to monitor his blood pressure regularly. He is instructed to discontinue medication if blood pressure drops below 90/60 mmHg. Hyperlipidemia is managed with simvastatin 20 mg, which has effectively lowered his LDL cholesterol to 49 mg/dL, below the target of 70 mg/dL. The patient experiences osteoarthritis in his knees, for which he takes ibuprofen as needed. He reports using ice for relief and has previously declined cortisone injections due to concerns about side effects. He is considering alternative treatments such as gel injections and has been advised to contact his front desk specialist for further evaluation. The patient also has a history of depression, managed with paroxetine. He reports feeling a lack of motivation at times, which he attempts to counteract with a supplement. [facility] Medical History Mild recurrent major depression Chronic fatigue Back pain Depression Pure hypercholesterolemia Diabetes mellitus Essential hypertension Surgical History Hx of tooth extraction History of surgery on arm History of appendectomy Family History Father No problems noted. Mother Hypertension Stroke Maternal Aunt Diabetes Social History Housing: Apartment Alcohol intake: never Patient Tobacco Use Status: Never used Tobacco e-Cigarette/Vaping Use: Never Used Second Hand Smoke Exposure: No service: No Current occupational status: disabled Cognitive needs: No Hearing needs: No Vision needs: Yes Questionnaire Thrive Questionnaire Date Thrive assessed: 07/02/24 JEMAL-7 AMB Questionnaire JEMAL-7 Date JEMAL - 7 assessed: 07/02/24 Source: Developed by Drs. Marco A Oneill, Ania Marcano, Varghese Bran and colleagues, with an educational gabriella from [employer]. Review of Systems Const All systems reviewed & are unremarkable except as noted in HPI and below Card Denies chest pain at rest, Denies chest pain with activity, Denies edema, Denies irregular heart rhythm, Denies claudication, Denies dyspnea, Denies dyspnea on exertion, Denies orthopnea, Denies paroxysmal nocturnal dyspnea and Denies slow heart rate Resp Denies cough, Denies dyspnea and Denies dyspnea on exertion GI Denies abdominal pain, Denies change in bowel habits, Denies excessive flatus, Denies nausea and Denies vomiting Neuro Denies lack of coordination Physical exam (Primary Care) Vital Signs: Last Vital Signs BP 112/86 11/02/24 14:18 BMI result Body Mass Index 32.7 BMI Assessment/Plan discussion: High BMI High, discussed plan: lifestyle, weight reduction, dietary and physical activity Tobacco/Smoking Status: Tobacco use Status Tobacco use date assessed 07/02/24 11/02/24 14:16 Patient Tobacco Use Status Never used Tobacco 11/02/24 14:16 e-Cigarette/Vaping Use Never Used 11/02/24 14:16 Thrive Assessment: Date of Thrive Assessment Date Thrive assessed 07/02/24 11/02/24 14:16 Resp Effort & Inspection: normal respiratory effort Auscultation: clear to auscultation bilaterally Cardio Jugular venous distension: no JVD Rate: regular rate Rhythm: regular rhythm Heart sounds: S1 normal heart sound present and S2 normal heart sound present Extrem General: Yes full ROM Results AMB Hemoglobin A1c AMB Hemoglobin A1c 6.9 % Last Edit by JAC Juarez on 11/02/24 14:2 7 Results Reviewed Results Reviewed: Laboratory Last Values Hgb A1c (Clinic) 6.9 % (4.0-6.0) H 11/02/24 14:14 Coding Level of Care Code Est Pt Level 4 (62985) Complex EM visit Add On G2211 Diagnoses Type 2 diabetes mellitus without complication, without long-term current use of insulin E11.9 Diabetes mellitus type: type 2 Diabetes mellitus mcc insulin use: without 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9 - Type 2 diabetes mellitus without complications (2) Osteoarthritis of left knee: Code(s): M17.12 - Unilateral primary osteoarthritis, left knee Category: Medical (3) Essential hypertension: Code(s): I10 - Essential (primary) hypertension Category: Medical (4) Mild recurrent major depression: Code(s): F33.0 - Major depressive disorder, recurrent, mild Category: Medical (5) Pure hypercholesterolemia: Code(s): E78.00 - Pure hypercholesterolemia, unspecified Category: Medical Plan The patient's diabetes management will continue with metformin, and his HbA1c will be re-evaluated in four months. Blood pressure should be monitored regularly, and medication should be adjusted if hypotension occurs. For hyperlipidemia, the patient will continue simvastatin therapy, with lipid levels monitored periodically. The patient is advised to maintain a healthy diet and exercise routine to support cardiovascular health. Regarding osteoarthritis, the patient is encouraged to use ice and ibuprofen for symptom relief. He should follow up with his front desk specialist to explore potential gel injections as an alternative to cortisone. For depression, the patient will continue paroxetine and is advised to monitor his mood and motivation levels. Patient was informed and verbally consented to the use of an ambient scribe for clinic note documentation during this visit. Orders: Orders AMB Hemoglobin A1c Today E11.9 - Type 2 diabetes mellitus without complications Vitamin D 25-OH Total 4 Months E55.9 - Vitamin D deficiency, unspecified Lipid Panel 4 Months E78.5 - Hyperlipidemia, unspecified Microalbumin, Random (w Creat) 4 Months R80.9 - Proteinuria, unspecified Vitamin B12 and Folate 4 Months E53.8 - Deficiency of other specified B group vitamins Comprehensive [place]. Panel Fast 4 Months E11.9 - Type 2 diabetes mellitus without complications
[2024-11-02 14:18] VITALS: BP 112/86; BMI 32.7
== END 2024-11-02 14:54 | disposition home or self-care (01) ==
LOC: HO.HMCH 14:12
PROVIDERS: PCP Internal Medicine; Visit Provider Internal Medicine
DX: E11.9 Type 2 diabetes mellitus without complications (principal); M17.12 Unilateral primary osteoarthritis, left knee; I10 Essential (primary) hypertension; F33.0 Major depressive disorder, recurrent, mild; E78.00 Pure hypercholesterolemia, unspecified

== ENCOUNTER → 2024-11-02 14:11 | Outpatient (BNVA) | payer OTHER, SELFPAY | PROVIDERS: PCP Internal Medicine; Visit Provider Internal Medicine | DX: E11.9 Type 2 diabetes mellitus without complications (principal); E78.5 Hyperlipidemia, unspecified; I10 Essential (primary) hypertension; M17.0 Bilateral primary osteoarthritis of knee; F33.0 Major depressive disorder, recurrent, mild; E78.00 Pure hypercholesterolemia, unspecified; E55.9 Vitamin D deficiency, unspecified; E53.8 Deficiency of other specified B group vitamins; Z79.84 Long term (current) use of oral hypoglycemic drugs | CPT/HCPCS: 83036; 99212 ==

== ENCOUNTER 2024-11-12 13:15 | Outpatient (REF) | payer OTHER, SELFPAY | END 2024-11-12 13:16 | disposition home or self-care (01) | LOC: HO.LNP 13:15 | PROVIDERS: PCP Internal Medicine; Visit Provider Urology | DX: N39.0 Urinary tract infection, site not specified (principal); R39.9 Unspecified symptoms and signs involving the genitourinary system; R31.9 Hematuria, unspecified; N40.1 Benign prostatic hyperplasia with lower urinary tract symptoms | CPT/HCPCS: 51798; 81003; 87086; 87088; 87186; 99212 ==

== ENCOUNTER 2024-11-12 13:15 | Outpatient (AMB) | payer OTHER, SELFPAY ==
--- NOTE | 2024-11-12 13:58 | MHC.OFFVIS ---
Intake Visit Reasons: 6m Intake Note: Patient is present for 6m follow up Urology Medication:VITAMIN B12 Antibiotic Allergy:NONE Blood Thinner:NONE PVR:0ml Director Of Real Estate Required: Yes Director Of Real Estate Language: Japanese Interpreter Name: Lowell Guillen Information Interpreted: non-clinical & clinical Allergies No Known Allergies Allergy (Verified 11/12/24 13:59) Medication List - Last Reconciled 11/12/24 by Len Antunez MD blood sugar diagnostic (True Metrix Glucose Test Strip) Use 1 test strip once a day blood sugar diagnostic (OneTouch Verio test strips) Use 1 test strip once a day blood-glucose meter (OneTouch Verio Flex Meter) As directed cholecalciferol (vitamin D3) 50 mcg PO DAILY 90 days ibuprofen 800 mg PO Q8H PRN 30 days lancets (FreeStyle Lancets) Test 3 times Daily lancets (OneTouch Delica Plus Lancet) USE ONCE DAILY DIRECTED lisinopril 2.5 mg PO DAILY 90 days metformin 850 mg PO DAILY 90 days nitrofurantoin monohyd/m-cryst 100 mg (Macrobid) 100 mg PO BID paroxetine HCl 20 mg PO DAILY simvastatin 20 mg PO BEDTIME 90 days tamsulosin (Flomax) 0.4 mg PO BEDTIME TENS units (TENS 502 device) As directed HPI Comments Details: 11/12/24- History of Present Illness - The patient is a 74-year-old male presenting with dizziness associated with tamsulosin and recurrent urinary tract infections. - Dizziness: The patient experienced dizziness as a side effect of tamsulosin, leading to discontinuation of the medication. - Recurrent urinary tract infections: The patient has recurrent urinary tract infections, with recent urine analysis confirming infection. - Previous diagnostic tests, including ultrasounds and cystoscopy, did not show any abnormalities. Results - Urine analysis: Infection present - Previous ultrasounds: No abnormalities detected - Cystoscopy: No concerning findings Discussion Notes I discussed with the patient the side effects of tamsulosin, including dizziness, and recommended discontinuing the medication to prevent falls. We also discussed the recurrent urinary tract infections and the need for further evaluation, including bladder biopsies in the operating room to investigate persistent infections. I explained the plan to start antibiotics and send urine for culture, as well as the possibility of a CAT scan to further assess the condition. Plan - Discontinue tamsulosin due to dizziness and risk of falls. - Initiate a different medication to manage urinary symptoms without causing dizziness. - Start antibiotics and send urine for culture to address the urinary tract infection. - Plan for bladder biopsies in the operating room to investigate recurrent infections. - Consider a CAT scan to further evaluate the urinary tract. 05/15/24-- Cystoscopy findings: prostatic urethra obstructive-bilobar enlargement, bulbous urethra WNL, no suspicious bladder lesions visualized. BPH-Continue tamsulosin. 03/27/24-FU BPH symptoms, LV -12/26/23--Miguel initially evaluated with complaints of testicular pain, he was treated for orchitis several weeks ago. He has changes in voiding, hesitency. Scrotal US 09/2023 reviewed. treated with levaquin, and started on tamsulosin. persistent irritative urinary symptoms, UA today- Nitrite positive. empirically start augmentin. Discussed results-- PSA - 03/25/24-1. Bladder US results-03/25/24--PROSTATE: Mild prostatomegaly at 36 cc--Mild BPH with trabeculated bladder wall and 39 cc postvoid residual. Renal US - 03/19/24- not transcribed by Radiologist, preliminary bilateral renal cysts, right kidney question lobulated parencyma indeterminate Will request radiologist to read. [facility] Medical History Mild recurrent major depression Chronic fatigue Back pain Depression Pure hypercholesterolemia Diabetes mellitus Essential hypertension Surgical History Hx of tooth extraction History of surgery on arm History of appendectomy Family History Father No problems noted. Mother Hypertension Stroke Maternal Aunt Diabetes Social History Housing: Apartment Alcohol intake: never Patient Tobacco Use Status: Never used Tobacco e-Cigarette/Vaping Use: Never Used Second Hand Smoke Exposure: No service: No Current occupational status: disabled Cognitive needs: No Hearing needs: No Vision needs: Yes Review of Systems Const All systems reviewed & are unremarkable except as noted in HPI and below Reports no additional complaints Eyes Reports no additional complaints ENT Reports no additional complaints Card Reports no additional complaints Resp Reports no additional complaints GI Reports no additional complaints Reports as per HPI Musc Reports no additional complaints Skin/Breast Reports system reviewed and no additional complaints, except as documented Neuro Reports no additional complaints Psych Reports no additional complaints Endo Reports no additional complaints Anatoly/Lymph Reports no additional complaints Aller/Immun Reports no additional complaints Office Procedures Post Void Residual Post Residual Void Post Void Residual (PVR): 0 [id number]-[id number] Void Residual by ultrasound Results AMB Urinalysis, Automated UA Leukoctes 500 Brittny/uL Last Edit by Crystal Zapien on 11/12/24 16:41 UA Nitrite Positive Last Edit by Crystal Zapien on 11/12/24 16:41 UA Urobilinogen 17 mg/dL Last Edit by Crystal Zapien on 11/12/24 16:41 UA Protein 0.3 mg/dL Last Edit by Crystal Zapien on 11/12/24 16:41 UA pH 5.5 Last Edit by Crystal Zapien on 11/12/24 16:41 UA Blood 10 Matthew/uL Last Edit by Crystal Zapien on 11/12/24 16:41 UA Specific [place] 1.025 Last Edit by Crystal Zapien on 11/12/24 16:41 UA Ketone Positive Last Edit by Crystal Zapien on 11/12/24 16:41 UA Bilirubin 17 mg/dL Last Edit by Crystal Zapien on 11/12/24 16:41 UA Glucose 0 mg/dL Last Edit by Crystal Zapien on 11/12/24 16:41 Results Reviewed Results Reviewed: Date of Service: 03/25/24 US PELVIS LIMITED (BLADDER) CLINICAL INFORMATION: BPH. COMPARISON: None available. TECHNIQUE: Real-time imaging of the bladder. FINDINGS: BLADDER: Well distended and normal. Bladder wall was trabeculated. Bilateral ureteral jets are demonstrated. Prevoid bladder volume is 261 mL. Postvoid bladder volume is 39 mL. PROSTATE: Mild prostatomegaly at 36 cc IMPRESSION: Mild BPH with trabeculated bladder wall and 39 cc postvoid residual. Date of Service: 10/18/23 US SCROTUM CLINICAL INFORMATION: Testicular pain, unspecified. COMPARISON: None available. TECHNIQUE: A sonogram of the scrotum was performed assessing reyna-scale appearance and color Doppler flow. Spectral Doppler analysis of the arterial and venous flow were performed in the testes bilaterally. FINDINGS: RIGHT: Right testicle measures 4.0 x 2.7 x 3.0 cm, volume 17.4 mL. Parenchymal echotexture is heterogeneous. No focal testicular parenchymal lesions are visualized. Spectral Doppler analysis of the arterial and venous flow is increased in the right testis. Right epididymal head is normal in size. No right varicocele is seen. There is a mildly complex right hydrocele. LEFT: Left testicle measures 5.1 x 2.0 x 2.5 cm, volume 13.0 mL. Parenchymal echotexture is heterogeneous. No focal testicular parenchymal lesions are visualized. Spectral Doppler analysis of the arterial and venous flow is normal in the left testis. Left epididymal head is normal size. 0.4 x 0.3 x 0.4 cm epididymal head cyst is seen. No left hydrocele or varicocele is seen. IMPRESSION: 1. Mildly heterogeneous testicles without a focal abnormality. 2. Mild increased vascularity of the right testicle. 3. Mildly complex right hydrocele. 4. 0.4 cm left epididymal head cyst. Assessment & Plan Assessment & Plan Orders: Orders Urine Culture Today N39.0 - Urinary tract infection, site not specified, R31.9 - Hematuria, unspecified, R39.9 - Unspecified symptoms and signs involving the genitourinary system CT urogram Today R31.9 - Hematuria, unspecified AMB Urinalysis Automated Today Z13.9 - Encounter for screening, unspecified AMB Post Void Residual by ultrasound Today N39.0 - Urinary tract infection, site not specified Medications: New nitrofurantoin monohyd/m-cryst 100 mg (Macrobid) must administer with a meal/food 100 mg PO BID 14 caps 0RF alfuzosin ER (Uroxatral) administer after the same meal each day, stop for symptoms of dizziness and call your physcian 10 mg PO DAILY 30 tabs 5RF Discontinued tamsulosin (Flomax) Discontinued Reason: Doctor's Order 0.4 mg PO BEDTIME 90 caps 1RF Coding CPT Codes Post Residual Void - PVR CPT Code: 43453-[id number] Void Residual by ultrasound ([id number])
== END 2024-11-12 14:45 | disposition home or self-care (01) ==
LOC: HO.HUSH 13:16
PROVIDERS: PCP Internal Medicine; Visit Provider Urology
DX: Z13.9 Encounter for screening, unspecified (principal)

== ENCOUNTER 2024-12-09 13:11 | Outpatient (REF) | payer OTHER, SELFPAY ==
--- NOTE | ~2024-12-09 | CT_ITS ---
CLINICAL HISTORY: R31.9 - Hematuria, unspecified CT abdomen and pelvis with and without contrast Comparison: None available Findings: No consolidation at the lung bases. Question trace amount of honeycombing at the right lung base. Unremarkable gallbladder. Underdistended bladder. No bladder stone or focal wall thickening. No hydronephrosis or nephrolithiasis. Lobular contour of the kidneys could be secondary to scarring. There are numerous bilateral subcentimeter low attenuating renal lesions which are too small to characterize. 5 mm hyperattenuating right renal lesion, indeterminate however favored to be a complex cyst ( series 5, image 72 and series 6, image 102 ). It is not well seen on the postcontrast images, likely due to its small size. The kidneys excrete contrast symmetrically. The prostate is nonenlarged, measuring 3.9 cm in transverse dimension. There are large amount of calcifications within the prostate. The other solid organs are unremarkable. No bowel wall thickening or dilation. The appendix is not visualized. No secondary signs of acute appendicitis. Colonic diverticulosis. No aneurysm. Ectasia is the infrarenal abdominal aorta which measures up to 2.8 cm. Ectasia bilateral common iliac arteries, measuring up to 1.8 cm. Moderate calcified atherosclerotic disease. No lymphadenopathy. No ascites. No acute osseous abnormality. Grade 1 anterolisthesis of L4 on L5, degenerative. Impression: No findings to explain the patient's presentation with hematuria. This document has been electronically signed by: Bernie Diaz MD on 12/10/2024 15:58:07
[2024-12-09] MEDS: iohexoL 350 MG/ML 100 ML INFUS..BTL IV (14:03)
[2024-12-09 15:50] LABS: Creatinine POC 1.1 mg/dL (0.5-1.4); GFR POC > 60
== END 2024-12-09 13:12 | disposition home or self-care (01) ==
LOC: HO.CT 13:11
PROVIDERS: PCP Internal Medicine; Visit Provider Urology
DX: R31.9 Hematuria, unspecified (principal)
CPT/HCPCS: 74178; 82565; Q9967

== ENCOUNTER → 2024-12-09 13:16 | Outpatient (BNV) | payer OTHER, SELFPAY | PROVIDERS: PCP Internal Medicine; Visit Provider Radiology Diagnostic Radiology | DX: R31.9 Hematuria, unspecified (principal) | CPT/HCPCS: 74178 ==

== ENCOUNTER 2024-12-14 09:05 | Outpatient (REF) | payer OTHER, SELFPAY ==
--- NOTE | ~2024-12-14 | XR_ITS ---
EXAMINATION: XR KNEE 1-2 VIEWS LEFT HISTORY: M25.562 - Pain in left knee COMPARISON: Comparison is made with the prior examination dated 03/19/2024. FINDINGS: Standing AP views of both knees and an additional sunrise patellar view of the left knee are submitted. Osseous mineralization is normal. There is no fracture or dislocation. There is severe osteoarthritis of the medial compartment and moderate osteoarthritis of the patellofemoral compartment, with joint space narrowing and osteophyte formation. There is also severe osteoarthritis of the medial compartment of the right knee. The soft tissues are unremarkable. XR/XR knee LT 2V IMPRESSION: Osteoarthritis of the left knee as described. Electronically signed by: Marco A Walsh MD 12/14/2024 11:43 AM EDT
== END 2024-12-14 09:06 | disposition home or self-care (01) ==
LOC: HO.HOSX 09:05
PROVIDERS: Visit Provider Physician Assistant
DX: M17.0 Bilateral primary osteoarthritis of knee (principal); M25.562 Pain in left knee; M25.561 Pain in right knee
CPT/HCPCS: 20610; 73560; 99212; J1010; J2003

== ENCOUNTER → 2024-12-14 11:05 | Outpatient (BNV) | payer OTHER, SELFPAY | PROVIDERS: Visit Provider Radiology Diagnostic Radiology | DX: M25.562 Pain in left knee (principal) | CPT/HCPCS: 73560 ==

== ENCOUNTER 2024-12-18 07:32 | Outpatient (AMB) | payer OTHER, SELFPAY ==
--- NOTE | 2024-12-18 07:31 | A.OFFVIS_ITS ---
Intake Visit Reasons: CT Urogram results Intake Note: Patient is present for 6m follow up for BOH Imaging done :CT 12/10/2024 Urology Medication:VITAMIN B12,ALFUZOSIN Antibiotic Allergy:NONE Blood Thinner:NONE LAST PVR:0ml Plant And Maintenance Technician Required: Yes Plant And Maintenance Technician Language: Computer Networker Services: Plant And Maintenance Technician Present Plant And Maintenance Technician Name: Carlos George Information Interpreted: non-clinical & clinical Accompanied by: SELF Allergies No Known Allergies Allergy (Verified 12/18/24 07:33) Medication List - Last Reconciled 12/18/24 by Len Antunez MD blood sugar diagnostic (True Metrix Glucose Test Strip) Use 1 test strip once a day blood sugar diagnostic (OneTouch Verio test strips) Use 1 test strip once a day blood-glucose meter (Combinent Biomedical SystemsTouch Verio Flex Meter) As directed cholecalciferol (vitamin D3) 50 mcg PO DAILY 90 days ibuprofen 800 mg PO Q8H PRN 30 days lancets (FreeStyle Lancets) Test 3 times Daily lancets (Combinent Biomedical SystemsTouch Delica Plus Lancet) USE ONCE DAILY DIRECTED lisinopril 2.5 mg PO DAILY 90 days metformin 850 mg PO DAILY 90 days paroxetine HCl 20 mg PO DAILY simvastatin 20 mg PO BEDTIME 90 days tamsulosin (Flomax) 0.4 mg PO BEDTIME TENS units (TENS 502 device) As directed HPI Comments Details: 12/18/24-- History of Present Illness - The patient is a 74-year-old male presenting with recurrent bladder infections. - The patient has been experiencing these infections repeatedly, prompting the need for further investigation. - The plan includes performing bladder biopsies to further investigate the cause of the infections. - The patient went back to using tamsulosin, which he reports as effective, and no longer having dizziness, will d/c alfuzosin. Results - CT Urogram: 12/10/23 Urinary tract Within Normal limits Plan - Plan to perform cysto bladder biopsies next week - Discontinue alfuzosin and continue with tamsulosin as it is reported to be effective by the patient. 11/12/24- - Recurrent urinary tract infections: The patient has recurrent urinary tract infections, U/A today nitrite positive - Microscopic hematuria, previous evaluation was within normal limits. - Will reevaluate urinary tract CT Urogram and repeat cysto out patient with possible bladder biopsies - The patient is was prescribed tamsulosin for BPH - Dizziness: The patient experienced dizziness as a side effect of tamsulosin, Patient instructed to stop tamsulosin 05/15/24-- Cystoscopy findings: prostatic urethra obstructive-bilobar enlargement, bulbous urethra WNL, no suspicious bladder lesions visualized. BPH-Continue tamsulosin. 03/27/24-FU BPH symptoms, LV -12/26/23--Miguel initially evaluated with complaints of testicular pain, he was treated for orchitis several weeks ago. He has c hanges in voiding, hesitency. Scrotal US 09/2023 reviewed. treated with levaquin, and started on tamsulosin. persistent irritative urinary symptoms, UA today- Nitrite positive. empirically start augmentin. Discussed results-- PSA - 03/25/24-. Bladder US results-03/25/24--PROSTATE: Mild prostatomegaly at 36 cc--Mild BPH with trabeculated bladder wall and 39 cc postvoid residual. Renal US - 03/19/24- not transcribed by Radiologist, preliminary bilateral renal cysts, right kidney question lobulated parencyma indeterminate Will request radiologist to read. [facility] Medical History Mild recurrent major depression Chronic fatigue Back pain Depression Pure hypercholesterolemia Diabetes mellitus Essential hypertension Surgical History Hx of tooth extraction History of surgery on arm History of appendectomy Family History Father No problems noted. Mother Hypertension Stroke Maternal Aunt Diabetes Social History Housing: Apartment Alcohol intake: never Patient Tobacco Use Status: Never used Tobacco e-Cigarette/Vaping Use: Never Used Second Hand Smoke Exposure: No service: No Current occupational status: disabled Cognitive needs: No Hearing needs: No Vision needs: Yes Review of Systems Const All systems reviewed & are unremarkable except as noted in HPI and below Reports no additional complaints Eyes Reports no additional complaints ENT Reports no additional complaints Card Reports no additional complaints Resp Reports no additional complaints GI Reports no additional complaints Reports as per HPI Musc Reports no additional complaints Skin/Breast Reports system reviewed and no additional complaints, except as documented Neuro Reports no additional complaints Psych Reports no additional complaints Endo Reports no additional complaints Anatoly/Lymph Reports no additional complaints Aller/Immun Reports no additional complaints Telehealth Telehealth Telehealth Platform: Telephone Location of provider rendering services: practice address Location of patient: address on file Patient Identification confirmed using: Name, : Yes Telehealth method: voice only Patient verbally consented to treatment: Yes Patient verbally consented to billing insurance company: Yes Patient informed of any privacy concerns related to visit: Yes Minutes spent on Phone/Video with Pt.: 13 Results Reviewed Results Reviewed: Date of Service: 12/09/24 CLINICAL HISTORY: R31.9 - Hematuria, unspecified CT abdomen and pelvis with and without contrast Comparison: None available Findings: No consolidation at the lung bases. Question trace amount of honeycombing at the right lung base. Unremarkable gallbladder. Underdistended bladder. No bladder stone or focal wall thickening. No hydronephrosis or nephrolithiasis. Lobular contour of the kidneys could be secondary to scarring. There are numerous bilateral subcentimeter low attenuating renal lesions which are too small to characterize. 5 mm hyperattenuating right renal lesion, indeterminate however favored to be a complex cyst ( series 5, image 72 and series 6, image 102 ). It is not well seen on the postcontrast images, likely due to its small size. The kidneys excrete contrast symmetrically. The prostate is nonenlarged, measuring 3.9 cm in transverse dimension. There are large amount of calcifications within the prostate. The other solid organs are unremarkable. No bowel wall thickening or dilation. The appendix is not visualized. No secondary signs of acute appendicitis. Colonic diverticulosis. No aneurysm. Ectasia is the infrarenal abdominal aorta which measures up to 2.8 cm. Ectasia bilateral common iliac arteries, measuring up to 1.8 cm. Moderate calcified atherosclerotic disease. No lymphadenopathy. No ascites. No acute osseous abnormality. Grade 1 anterolisthesis of L4 on L5, degenerative. Impression: No findings to explain the patient's presentation with hematuria. Date of Service: 03/25/24 US PELVIS LIMITED (BLADDER) CLINICAL INFORMATION: BPH. COMPARISON: None available. TECHNIQUE: Real-time imaging of the bladder. FINDINGS: BLADDER: Well distended and normal. Bladder wall was trabeculated. Bilateral ureteral jets are demonstrated. Prevoid bladder volume is 261 mL. Postvoid bladder volume is 39 mL. PROSTATE: Mild prostatomegaly at 36 cc IMPRESSION: Mild BPH with trabeculated bladder wall and 39 cc postvoid residual. Date of Service: 10/18/23 US SCROTUM CLINICAL INFORMATION: Testicular pain, unspecified. COMPARISON: None available. TECHNIQUE: A sonogram of the scrotum was performed assessing reyna-scale appearance and color Doppler flow. Spectral Doppler analysis of the arterial and venous flow were performed in the testes bilaterally. FINDINGS: RIGHT: Right testicle measures 4.0 x 2.7 x 3.0 cm, volume 17.4 mL. Parenchymal echotexture is heterogeneous. No focal testicular parenchymal lesions are visualized. Spectral Doppler analysis of the arterial and venous flow is increased in the right testis. Right epididymal head is normal in size. No right varicocele is seen. There is a mildly complex right hydrocele. LEFT: Left testicle measures 5.1 x 2.0 x 2.5 cm, volume 13.0 mL. Parenchymal echotexture is heterogeneous. No focal testicular parenchymal lesions are visualized. Spectral Doppler analysis of the arterial and venous flow is normal in the left testis. Left epididymal head is normal size. 0.4 x 0.3 x 0.4 cm epididymal head cyst is seen. No left hydrocele or varicocele is seen. IMPRESSION: 1. Mildly heterogeneous testicles without a focal abnormality. 2. Mild increased vascularity of the right testicle. 3. Mildly complex right hydrocele. 4. 0.4 cm left epididymal head cyst. Assessment & Plan Assessment & Plan (1) BPH loc w urin obs/LUTS: Code(s): N40.1 - Benign prostatic hyperplasia with lower urinary tract symptoms Category: Medical (2) Hematuria: Code(s): R31.9 - Hematuria, unspecified Category: Medical (3) Recurrent UTI: Code(s): N39.0 - Urinary tract infection, site not specified Category: Medical Plan Cont tamsulosin. Persistent Bacteuria, Microscopic hematuria,cysto bladder biopsies scheduled for 12/22/24. Medications: New tamsulosin (Flomax) 0.4 mg PO BEDTIME 90 caps 2RF N40.1 - Benign prostatic hyperplasia with lower urinary tract symptoms Discontinued nitrofurantoin monohyd/m-cryst 100 mg (Macrobid) must administer with a meal/food Discontinued Reason: Patient Completed Course 100 mg PO BID 14 caps 0RF alfuzosin ER (Uroxatral) administer after the same meal each day, stop for symptoms of dizziness and call your physcian Discontinued Reason: Doctor's Order 10 mg PO DAILY 30 tabs 5RF Patient Instructions: The patient had an opportunity to ask questions regarding treatment plan. The patient expressed understanding and agreement with the above treatment plan. The patient is aware they should contact our office by phone for worsening of their current condition or the appearance of new symptoms. Compliance is encouraged with any medications and followup testing that is ordered. It is a privilege to be allowed the opportunity to participate in the urologic care of your patient. If you have any questions or concerns regarding treatment for the above conditions please do not hesitate to contact me. The office telephone contact is [phone]. This note is constructed in part using voice recognition software. While every effort has been made to ensure accuracy editor continuity and script errors may have been included. Yours sincerely, Len Antunez MD Scribe Plan - Not visible on output: Patient was informed and verbally consented to the use of an ambient scribe for clinic note documentation during this visit. Coding Level of Care Code Tele Est Pt Level 3 (11367) Diagnoses BPH loc w urin obs/LUTS N40.1 Hematuria R31.9 Recurrent UTI N39.0
== END 2024-12-18 14:19 | disposition home or self-care (01) ==
LOC: HO.HUSH 07:32
PROVIDERS: PCP Internal Medicine; Visit Provider Urology
DX: N40.1 Benign prostatic hyperplasia with lower urinary tract symptoms (principal); R31.9 Hematuria, unspecified; N39.0 Urinary tract infection, site not specified
CPT/HCPCS: 99213

== ENCOUNTER 2024-12-22 10:42 | Day surgery (SDC) | payer OTHER, SELFPAY ==
[2024-12-18 12:49] VITALS: BMI 32.7
--- NOTE | 2024-12-21 09:31 | HO.ANESPROP2 ---
Documented by User: Leydi Montenegro NP 12/21/24 09:31 HPI - Anesthesia Eval Consult details Narrative: 74yo M for Cystoscopy,with Bladder Biopsy PMFSH Active Problems Active Problems: All Active Problems Osteoarthritis of knees, bilateral (Acute) Hematuria (Acute) Bilateral renal cysts (Acute) Recurrent UTI (Acute) UTI symptoms (Acute) Osteoarthritis of left knee (Acute) Osteoarthritis (Acute) Left knee pain (Acute) BPH loc w urin obs/LUTS (Acute) Testicular pain (Acute) Orchitis (Acute) Testicle tenderness (Acute) Mild recurrent major depression (Acute) Essential hypertension (Acute) Diabetes mellitus (Acute) Pure hypercholesterolemia (Acute) Depression (Acute) Back pain (Acute) Chronic fatigue (Acute) Past Medical History Medical History Mild recurrent major depression Chronic fatigue Back pain Depression Pure hypercholesterolemia Diabetes mellitus Essential hypertension Family History Family History Father No problems noted. Mother Hypertension Stroke Maternal Aunt Diabetes Surgical History Surgical History Hx of tooth extraction History of surgery on arm History of appendectomy Social History Social History Housing: Apartment Are you a primary special needs child caregiver to a significant other at home: No Do you presently have visiting nurse or other home services: No Alcohol intake: never Patient Tobacco Use Status: Never used Tobacco e-Cigarette/Vaping Use: Never Used Second Hand Smoke Exposure: No Use of substances other than those prescribed or required for medical reasons: No Have you been hit, kicked, punched, or otherwise hurt by someone within the past year? If so, by whom?: No Are you DNR?: No Advance Directives: No Advance Directives Information Provided: Yes Poor oral hygiene: No service: No Current occupational status: disabled Cognitive needs: No Hearing needs: No Vision needs: Yes Meds Allergies Allergy/AdvReac Type Severity Reaction Status Date / Time No Known Allergies Allergy Verified 12/22/24 10:57 Exam Height,Weight and Vital Signs: Height 5 ft 7 in Weight 94.801 kg Assessment and Plan Assessment Anesthesia Assessment: Chart Reviewed Documented by User: Estefany Mcmullen MD 12/22/24 13:50 PMFSH Past Medical History Medical History Mild recurrent major depression Chronic fatigue Back pain Depression Pure hypercholesterolemia Diabetes mellitus Essential hypertension Family History Family History Father No problems noted. Mother Hypertension Stroke Maternal Aunt Diabetes Family history of problems with anesthesia: No Surgical History Surgical History Hx of tooth extraction History of surgery on arm History of appendectomy History of Problems with Anesthesia: No Social History Social History Housing: Apartment Are you a primary special needs child caregiver to a significant other at home: No Do you presently have visiting nurse or other home services: No Alcohol intake: never Patient Tobacco Use Status: Never used Tobacco e-Cigarette/Vaping Use: Never Used Second Hand Smoke Exposure: No Use of substances other than those prescribed or required for medical reasons: No Have you been hit, kicked, punched, or otherwise hurt by someone within the past year? If so, by whom?: No Are you DNR?: No Advance Directives: No Advance Directives Information Provided: Yes Poor oral hygiene: No service: No Current occupational status: disabled Cognitive needs: No Hearing needs: No Vision needs: Yes Meds Allergies Allergy/AdvReac Type Severity Reaction Status Date / Time No Known Allergies Allergy Verified 12/22/24 10:57 Exam Airway TM Dist: >3cm Neck ROM: Limited Heart: rrr Lungs: cta Assessment and Plan Assessment Anesthesia Assessment: Anesthesia Plan Discussed Final Anesthetic Review Family History of Problems with Anesthesia: No History of Problems with Anesthesia: No NPO: Yes ASA Class: II Final Preanesthetic Review: No Changes in Pt Med Stat, Meds/Allgs Chart Reviewed, Consent Obtained/Reviewed and Anes Risks/Benef Reviewed Patient Risk: Intermediate Procedure Risk: Low Anesthetic Plan Anesthetic Plan: GA, MAC: and Agree w/ Assess. and Plan Disposition: Standard PACU
[2024-12-22 11:05] VITALS: BP 134/73; PULSE 66; RESP 12; TEMP 36.6; O2SAT 95; BMI 32.5
[2024-12-22] MEDS: Lactated Ringers 1,000 ML 100 ML IVCONT (11:44)
[2024-12-22 11:57] LABS: Glucose, Whole Blood 119 mg/dL (60-115)
--- NOTE | 2024-12-22 14:03 | MHC.SHP ---
Pre-Procedural Eval Section A - 24 Hr Update-Section A only Date of Service: 12/22/24 The patient is an INPATIENT: No Section B - Complete if H&P > 30 days Chief Complaint: Urinary tract infection,hematuria Allergies: Allergies Allergy/AdvReac Type Severity Reaction Status Date / Time No Known Allergies Allergy Verified 12/22/24 10:57 Plan Diagnosis/Plan: Unchanged I have reviewed the history and physical and performed a pertinent physical examination on my patient. No changes have occurred unless specified. Cystoscopy bladder biopsies. Discussed risks to include but not limited to, blood in the urine, burning with urination, urgency. Time Spent With Patient Time: Total time managing care of this patient today ____ minutes.
--- NOTE | 2024-12-22 14:04 | W.PM.OPN ---
Operative Note Operative Note Date of Service: 12/22/24 Narrative: PREOP DIAGNOSIS: Persistent bacteriuria, hematuria, recurrent UTIs POSTOP DIAGNOSIS: Persistent bacteriuria, hematuria, recurrent UTIs PROCEDURE: Cystoscopy bladder biopsies SURGEON: Len Antunez MD ANESTHESIA: General Details of procedure: The patient was brought into the operating room placed on the OR table in supine position. Antibiotics confirmed. General anesthesia was administered. The patient was repositioned into lithotomy position, prepped and draped in the usual sterile fashion. Time-out was done per protocol. A 22 fr cystoscope was placed transurethrally into the bladder. At the proximal bulbous urethra there was a soft short urethral stricture, the scope was able to be manipulated past the area. Urine was sent for culture. The right and left ureteral orifices were visualized. There were moderate trabeculations noted. There were no suspicious bladder lesions seen. Random bladder biopsies were taken from the posterior wall right lateral wall and left lateral wall. The Bugbee was used to obtain adequate hemostasis. The bladder was drained and the cystoscope was removed. The patient was brought out of anesthesia and taken to recovery in stable condition. Complications: None Drains: none
[2024-12-22 14:46] VITALS: BP 129/78; PULSE 55; RESP 14; TEMP 36.9; O2SAT 95
[2024-12-22 14:51] VITALS: BP 149/84; PULSE 58; RESP 16; O2SAT 95
[2024-12-22 14:56] VITALS: BP 158/63; PULSE 77; RESP 16; O2SAT 96
[2024-12-22 15:01] VITALS: BP 159/80; PULSE 74; RESP 18; TEMP 36.7; O2SAT 96
[2024-12-22 15:13] VITALS: BP 123/74; PULSE 68; RESP 18; TEMP 36.7; O2SAT 97
== END 2024-12-22 15:32 | disposition home or self-care (01) ==
PROVIDERS: PCP Internal Medicine; Visit Provider Urology
PROC: (CPT 52204; principal; 2024-12-22 13:40)
DX: N30.21 Other chronic cystitis with hematuria (principal); B96.20 Unspecified Escherichia coli [E. coli] as the cause of diseases classified elsewhere; R82.71 Bacteriuria; N40.1 Benign prostatic hyperplasia with lower urinary tract symptoms; M54.9 Dorsalgia, unspecified; F33.0 Major depressive disorder, recurrent, mild; I10 Essential (primary) hypertension; E78.00 Pure hypercholesterolemia, unspecified; E11.9 Type 2 diabetes mellitus without complications; Z79.84 Long term (current) use of oral hypoglycemic drugs; Z79.899 Other long term (current) drug therapy; Z79.1 Long term (current) use of non-steroidal anti-inflammatories (NSAID)
CPT/HCPCS: 52204; 82947; 87086; 87088; 87186; 88305; J0690; J2003; J2704; J3010

== ENCOUNTER → 2024-12-22 10:42 | Outpatient (BNV) | payer OTHER, SELFPAY | PROVIDERS: PCP Internal Medicine; Visit Provider Urology | DX: R82.71 Bacteriuria (principal); N39.0 Urinary tract infection, site not specified; R31.9 Hematuria, unspecified | CPT/HCPCS: 52204 ==

== ENCOUNTER 2025-01-15 08:08 | Outpatient (AMB) | payer OTHER, SELFPAY ==
--- NOTE | 2025-01-15 08:11 | MHC.OFFVIS ---
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 Language: Labor Relations Supervisor Services: Overhead Garage Door Hanger Present Overhead Garage Door Hanger Name: Deisi [id number] Accompanied by: Self / Same As Patient Allergies No Known Allergies Allergy (Verified 01/15/25 08:12) Medication List - Last Reconciled 01/15/25 by Len Antunez MD blood sugar diagnostic (True Metrix Glucose Test Strip) Use 1 test strip once a day blood sugar diagnostic (OneTouch Verio test strips) Use 1 test strip once a day blood-glucose meter (VIPstore.comTouch Verio Flex Meter) As directed cholecalciferol (vitamin D3) 50 mcg PO DAILY 90 days doxazosin (Cardura) 4 mg PO BEDTIME 30 days doxycycline hyclate 100 mg PO BID 7 days ibuprofen 800 mg PO Q8H PRN 30 days lancets (FreeStyle Lancets) Test 3 times Daily lancets ([employer] Delica Plus Lancet) USE ONCE DAILY DIRECTED lisinopril 2.5 mg PO DAILY 90 days metformin 850 mg PO DAILY 90 days methenamine hippurate 1 g PO BID paroxetine HCl 20 mg PO DAILY phenazopyridine (Pyridium) 100 mg PO Q8H PRN simvastatin 20 mg PO BEDTIME 90 days TENS units (TENS 502 device) As directed HPI Comments Details: 01/15/25--Miguel is being evaluated due to persistent bacteriuria and recurrent UTIs. He is status post cystoscopy bladder biopsies on 12/22/2024. I have reviewed bladder biopsy pathology-benign, negative for atypia. We will continue to monitor. The patient is off of the tamsulosin he is on Cardura/doxazosin 4 mg daily. He denies symptoms of dizziness with the use of doxazosin. We will start on methenamine 1 g b.i.d., for 3 months and then taper the methenamine dose to 1 g daily. 12/18/24-- - The patient is a 74-year-old male presenting with recurrent bladder infections. - The patient has been experiencing these infections repeatedly, prompting the need for further investigation. - The plan includes performing bladder biopsies to further investigate the cause of the infections. - The patient went back to using tamsulosin, which he reports as effective, and no longer having dizziness, will d/c alfuzosin. Results - CT Urogram: 12/10/23 Urinary tract Within Normal limits Plan - Plan to perform cysto bladder biopsies next week - Discontinue alfuzosin and continue with tamsulosin as it is reported to be effective by the patient. 11/12/24- - Recurrent urinary tract infections: The patient has recurrent urinary tract infections, U/A today nitrite positive - Microscopic hematuria, previous evaluation was within normal limits. - Will reevaluate urinary tract CT Urogram and repeat cysto out patient with possible bladder biopsies - The patient is was prescribed tamsulosin for BPH - Dizziness: The patient experienced dizziness as a side effect of tamsulosin, Patient instructed to stop tamsulosin 05/15/24-- Cystoscopy findings: prostatic urethra obstructive-bilobar enlargement, bulbous urethra WNL, no suspicious bladder lesions visualized. BPH-Continue tamsulosin. 03/27/24-FU BPH symptoms, LV -12/26/23--Miguel initially evaluated with complaints of testicular pain, he was treated for orchitis several weeks ago. He has changes in voiding, hesitency. Scrotal US 09/2023 reviewed. treated with levaquin, and started on tamsulosin. persistent irritative urinary symptoms, UA today- Nitrite positive. empirically start augmentin. Discussed results-- PSA - 03/25/24-1. Bladder US results-03/25/24--PROSTATE: Mild prostatomegaly at 36 cc--Mild BPH with trabeculated bladder wall and 39 cc postvoid residual. Renal US - 03/19/24- not transcribed by Radiologist, preliminary bilateral renal cysts, right kidney question lobulated parencyma indeterminate Will request radiologist to read. [facility] Medical History Mild recurrent major depression Chronic fatigue Back pain Depression Pure hypercholesterolemia Diabetes mellitus Essential hypertension Surgical History Hx of tooth extraction History of surgery on arm History of appendectomy Family History Father No problems noted. Mother Hypertension Stroke Maternal Aunt Diabetes Social History Housing: Apartment Are you a primary child care giver to a significant other at home: No Do you presently have visiting nurse or other home services: No Alcohol intake: never Patient Tobacco Use Status: Never used Tobacco e-Cigarette/Vaping Use: Never Used Second Hand Smoke Exposure: No service: No Current occupational status: disabled Cognitive needs: No Hearing needs: No Vision needs: Yes Review of Systems Const All systems reviewed & are unremarkable except as noted in HPI and below Reports no additional complaints Eyes Reports no additional complaints ENT Reports no additional complaints Card Reports no additional complaints Resp Reports no additional complaints GI Reports no additional complaints Reports as per HPI Musc Reports no additional complaints Skin/Breast Reports system reviewed and no additional complaints, except as documented Neuro Reports no additional complaints Psych Reports no additional complaints Endo Reports no additional complaints Anatoly/Lymph Reports no additional complaints Aller/Immun Reports no additional complaints Office Procedures Post Void Residual Post Residual Void Post Void Residual (PVR): 59 23550-Kaad Void Residual by ultrasound Results AMB Urinalysis, Automated UA Leukoctes 500 Brittny/uL Last Edit by ROSIO Handy on 01/15/25 08:32 UA Nitrite Positive Last Edit by ROSIO Handy on 01/15/25 08:32 UA Urobilinogen 0.2 mg/dL Last Edit by ROSIO Handy on 01/15/25 08:32 UA Protein 15 mg/dL Last Edit by ROSIO Handy on 01/15/25 08:32 UA pH 6.0 Last Edit by ROSIO Handy on 01/15/25 08:32 UA Blood 80 Matthew/uL Last Edit by ROSIO Handy on 01/15/25 08:32 UA Specific [place] 1.025 Last Edit by ROSIO Handy on 01/15/25 08:32 UA Ketone Positive Last Edit by ROSIO Handy on 01/15/25 08:32 UA Bilirubin 0 mg/dL Last Edit by ROSIO Handy on 01/15/25 08:32 UA Glucose 0 mg/dL Last Edit by ROSIO Handy on 01/15/25 08:32 Results Reviewed Results Reviewed: Laboratory Last Values Urine pH (Auto) 6.0 01/15/25 08:31 Specific [place] (Auto) 1.025 01/15/25 08:31 Urine Protein (Auto) 15 mg/dL 01/15/25 08:31 Glucose (UA)(Auto) 0 mg/dL 01/15/25 08:31 Urine Ketones (Auto) Positive 01/15/25 08:31 Urine Blood (Auto) 80 Matthew/uL 01/15/25 08:31 Urine Nitrite (Auto) Positive 01/15/25 08:31 Urine Bilirubin (Auto) 0 mg/dL 01/15/25 08:31 Urine Urobilinogen (Auto) 0.2 mg/dL 01/15/25 08:31 Leukocyte Esterase (Auto) 500 Brittny/uL 01/15/25 08:31 Collected: 12/22/24 Location: [facility] Received: 12/22/24 Diagnosis A. Bladder, posterior wall, biopsy: -Benign urothelium with chronic cystitis. -No muscularis mucosa present. B. Bladder, left lateral wall, biopsy: -Scant benign urothelium. -No muscularis propria present. C. Bladder, right lateral wall, biopsy: -Benign urothelium with minimal chronic inflammation. -Muscularis propria present. Clinical History UTI, hematuria Microscopic Description Multiple microscopic sections reviewed. Material Received A. Posterior bladder wall bx B. Left lateral bladder wall bx C. Right lateral bladder wall bx Gross Description Received in 3 parts. A. Received in formalin, on Telfa, labeled ?posterior bladder wall biopsy? is a fragment of pink white soft tissue measuring 0.3 cm in greatest dimension which is wrapped in lens paper and entirely submitted for microscopic examination, 1 piece in cassette A. B. Received in formalin, on Telfa, labeled ?left lateral bladder wall biopsy? is a fragment of red-pink soft tissue measuring 0.2 cm in greatest dimension which is wrapped in lens paper and entirely submitted for microscopic examination, 1 piece in cassette B. C. Received in formalin, on Telfa, labeled ?right lateral bladder wall biopsy? is a fragment of pink white soft tissue measuring 0.2 cm in greatest dimension which is wrapped in lens paper and entirely submitted for microscopic examination, 1 piece in cassette C. ([facility]) Patient: Miguel Simental Age/Sex: 74/M MR#: [id number] Page 1 of 2 Date of Service: 12/09/24 CLINICAL HISTORY: R31.9 - Hematuria, unspecified CT abdomen and pelvis with and without contrast Comparison: None available Findings: No consolidation at the lung bases. Question trace amount of honeycombing at the right lung base. Unremarkable gallbladder. Underdistended bladder. No bladder stone or focal wall thickening. No hydronephrosis or nephrolithiasis. Lobular contour of the kidneys could be secondary to scarring. There are numerous bilateral subcentimeter low attenuating renal lesions which are too small to characterize. 5 mm hyperattenuating right renal lesion, indeterminate however favored to be a complex cyst ( series 5, image 72 and series 6, image 102 ). It is not well seen on the postcontrast images, likely due to its small size. The kidneys excrete contrast symmetrically. The prostate is nonenlarged, measuring 3.9 cm in transverse dimension. There are large amount of calcifications within the prostate. The other solid organs are unremarkable. No bowel wall thickening or dilation. The appendix is not visualized. No secondary signs of acute appendicitis. Colonic diverticulosis. No aneurysm. Ectasia is the infrarenal abdominal aorta which measures up to 2.8 cm. Ectasia bilateral common iliac arteries, measuring up to 1.8 cm. Moderate calcified atherosclerotic disease. No lymphadenopathy. No ascites. No acute osseous abnormality. Grade 1 anterolisthesis of L4 on L5, degenerative. Impression: No findings to explain the patient's presentation with hematuria. Date of Service: 03/25/24 US PELVIS LIMITED (BLADDER) CLINICAL INFORMATION: BPH. COMPARISON: None available. TECHNIQUE: Real-time imaging of the bladder. FINDINGS: BLADDER: Well distended and normal. Bladder wall was trabeculated. Bilateral ureteral jets are demonstrated. Prevoid bladder volume is 261 mL. Postvoid bladder volume is 39 mL. PROSTATE: Mild prostatomegaly at 36 cc IMPRESSION: Mild BPH with trabeculated bladder wall and 39 cc postvoid residual. Date of Service: 10/18/23 US SCROTUM CLINICAL INFORMATION: Testicular pain, unspecified. COMPARISON: None available. TECHNIQUE: A sonogram of the scrotum was performed assessing reyna-scale appearance and color Doppler flow. Spectral Doppler analysis of the arterial and venous flow were performed in the testes bilaterally. FINDINGS: RIGHT: Right testicle measures 4.0 x 2.7 x 3.0 cm, volume 17.4 mL. Parenchymal echotexture is heterogeneous. No focal testicular parenchymal lesions are visualized. Spectral Doppler analysis of the arterial and venous flow is increased in the right testis. Right epididymal head is normal in size. No right varicocele is seen. There is a mildly complex right hydrocele. LEFT: Left testicle measures 5.1 x 2.0 x 2.5 cm, volume 13.0 mL. Parenchymal echotexture is heterogeneous. No focal testicular parenchymal lesions are visualized. Spectral Doppler analysis of the arterial and venous flow is normal in the left testis. Left epididymal head is normal size. 0.4 x 0.3 x 0.4 cm epididymal head cyst is seen. No left hydrocele or varicocele is seen. IMPRESSION: 1. Mildly heterogeneous testicles without a focal abnormality. 2. Mild increased vascularity of the right testicle. 3. Mildly complex right hydrocele. 4. 0.4 cm left epididymal head cyst. Assessment & Plan Assessment & Plan (1) BPH loc w urin obs/LUTS: Code(s): N40.1 - Benign prostatic hyperplasia with lower urinary tract symptoms Category: Medical (2) Hematuria: Code(s): R31.9 - Hematuria, unspecified Category: Medical (3) Recurrent UTI: Code(s): N39.0 - Urinary tract infection, site not specified Category: Medical (4) Bacteriuria, asymptomatic: Code(s): R82.71 - Bacteriuria Category: Medical Plan I have reviewed bladder biopsy pathology-benign, negative for atypia. We will continue to monitor. The patient is off of the tamsulosin he is on Cardura/doxazosin 4 mg daily. He denies symptoms of dizziness with the use of doxazosin. We will start on methenamine 1 g b.i.d., for 3 months and then taper the methenamine dose to 1 g daily. Orders: Orders AMB Post Void Residual by ultrasound Today N40.1 - Benign prostatic hyperplasia with lower urinary tract symptoms AMB Urinalysis Automated Today Z13.9 - Encounter for screening, unspecified Medications: New methenamine hippurate 1 g PO BID 60 tabs 2RF Patient Instructions: The patient had an opportunity to ask questions regarding treatment plan. The patient expressed understanding and agreement with the above treatment plan. The patient is aware they should contact our office by phone for worsening of their current condition or the appearance of new symptoms. Compliance is encouraged with any medications and followup testing that is ordered. It is a privilege to be allowed the opportunity to participate in the urologic care of your patient. If you have any questions or concerns regarding treatment for the above conditions please do not hesitate to contact me. The office telephone contact is [phone]. This note is constructed in part using voice recognition software. While every effort has been made to ensure accuracy gas welder errors may have been included. Yours sincerely, Len Antunez MD Coding Level of Care Code Est Pt Level 4 (71313) Complex EM visit Add On G2211 Diagnoses BPH loc w urin obs/LUTS N40.1 Hematuria R31.9 Recurrent UTI N39.0 Bacteriuria, asymptomatic R82.71 CPT Codes Post Residual Void - PVR CPT Code: 10276-Zomv Void Residual by ultrasound ([id number])
== END 2025-01-15 09:15 | disposition home or self-care (01) ==
PROVIDERS: PCP Internal Medicine; Visit Provider Urology
DX: N40.1 Benign prostatic hyperplasia with lower urinary tract symptoms (principal); R31.9 Hematuria, unspecified; N39.0 Urinary tract infection, site not specified; R82.71 Bacteriuria; Z13.9 Encounter for screening, unspecified
CPT/HCPCS: 99214; G2211

== ENCOUNTER → 2025-01-15 08:08 | Outpatient (BNVA) | payer OTHER, SELFPAY | PROVIDERS: PCP Internal Medicine; Visit Provider Urology | DX: N40.1 Benign prostatic hyperplasia with lower urinary tract symptoms (principal); N13.8 Other obstructive and reflux uropathy; R82.71 Bacteriuria; R31.9 Hematuria, unspecified; N39.0 Urinary tract infection, site not specified; Z13.9 Encounter for screening, unspecified | CPT/HCPCS: 51798; 81003; 99212 ==

== ENCOUNTER 2025-03-04 14:48 | Outpatient (AMB) | payer OTHER, SELFPAY ==
[2025-03-04 14:53] VITALS: BP 136/78; PULSE 66; RESP 18; TEMP 36.3; O2SAT 95; BMI 32.0
--- NOTE | 2025-03-04 14:53 | MHC.PC.OV ---
Vital Signs 03/04/25 14:53 Height 5 ft 7 in Weight 204 lb 8 oz BMI 32.0 BP 136/78 Blood Pressure Location Lt brachial Position Sitting Respiration 18 Pulse 66 Pulse Source Pulse Oximeter Temp 97.3 F Temp Source Temporal Artery Scan Pulse Oximetry (%) 95 Oxygen Delivery Method Room Air Intake Visit Reasons: dm Medical Staff Services Manager Required: No Accompanied by: Self / Same As Patient Allergies No Known Allergies Allergy (Verified 03/04/25 15:14) Medication List - Last Reconciled 03/04/25 by Nahomy Ovalles MD blood sugar diagnostic (True Metrix Glucose Test Strip) Use 1 test strip once a day blood sugar diagnostic (OneTouch Verio test strips) Use 1 test strip once a day blood-glucose meter (Crystax PharmaceuticalsTouch Verio Flex Meter) As directed cholecalciferol (vitamin D3) 50 mcg PO DAILY 90 days doxazosin 4 mg PO BEDTIME doxycycline hyclate 100 mg PO BID 7 days ibuprofen 800 mg PO Q8H PRN 30 days lancets (FreeStyle Lancets) Test 3 times Daily lancets ([employer] Delica Plus Lancet) USE ONCE DAILY DIRECTED lisinopril 2.5 mg PO DAILY 90 days metformin 850 mg PO DAILY 90 days methenamine hippurate 1 g PO BID paroxetine HCl 20 mg PO DAILY phenazopyridine (Pyridium) 100 mg PO Q8H PRN simvastatin 20 mg PO BEDTIME 90 days TENS units (TENS 502 device) As directed Tobacco use date assessed: 03/04/25 Fall risk assessment: 2 + Falls in past year Last assessed Fall Risk: 03/04/25 Dental Screening Dental Screen Date: 03/04/25 Did you have a dental visit in the last 12 months?: Yes Did you have a dental problem in the last 6 months where you did not have access to dental care?: No Was dental information given to patient?: Patient has dentist HPI HPI Comments History of Present Illness Details The patient is a 74-year-old male presenting for follow-up on diabetes, hypertension, depression, and hyperlipidemia management. The patient has a history of diabetes mellitus, currently managed with metformin 850 mg once daily. He reports blood glucose levels typically ranging from 70 to 140 mg/dL, with occasional spikes to 145 mg/dL if dietary indiscretions occur. His most recent HbA1c was 6.2%, indicating good glycemic control. The patient has essential hypertension, previously managed with doxazosin, which he reports causes hypotension with readings as low as 90/60 mmHg. He has been advised to reduce the dose to half to mitigate these effects. The patient is also being treated for major depressive disorder with paroxetine 20 mg daily, prescribed by his psychiatrist. He reports feeling discouraged at times but manages to walk for 20-30 minutes, which he finds beneficial. Hyperlipidemia is managed with simvastatin, although specific lipid levels were not discussed during the visit. Preventative care measures were discussed, including the recommendation for pneumonia vaccination, which the patient has not yet received. [facility] Medical History Mild recurrent major depression Chronic fatigue Back pain Depression Pure hypercholesterolemia Diabetes mellitus Essential hypertension Surgical History Hx of tooth extraction History of surgery on arm History of appendectomy Family History Father No problems noted. Mother Hypertension Stroke Maternal Aunt Diabetes Social History Housing: Apartment Are you a primary career counselor to a significant other at home: No Do you presently have visiting nurse or other home services: No Alcohol intake: never Patient Tobacco Use Status: Never used Tobacco e-Cigarette/Vaping Use: Never Used Second Hand Smoke Exposure: No service: No Current occupational status: disabled Cognitive needs: No Hearing needs: No Vision needs: Yes Questionnaire PHQ-9 Over the last 2 weeks, how often have you been bothered by any of the following problems? 1. Little interest or pleasure in doing things: more than half the days 2. Feeling down, depressed, or hopeless: not at all 3. Trouble falling or staying asleep, or sleeping too much: several days 4. Feeling tired or having little energy: several days 5. Poor appetite or overeating: not at all 6. Feeling bad about yourself - or that you are a failure or have let yourself or your family down: not at all 7. Trouble concentrating on things, such as reading the newspaper or watching television: several days 8. Moving or speaking so slowly that other people could have noticed. Or the opposite - being so fidgety or restless that you have been moving around a lot more than usual: not at all 9. Thoughts that you would be better off or of hurting yourself in some way: not at all Total score: 5 Depression Screening Interpretation: Positive Depression Screening Follow-up: Existing condition, In treatment and Follow-up Visit Requested Depression Screening Done: Yes 76278 - PHQ-9 Billing: Yes Source: Developed by Drs. Marco A Oniell, Ania Marcano, Varghese Bran and colleagues, with an educational gabriella from [employer]. Thrive Questionnaire Date Thrive assessed: 03/04/25 I am a: Patient What is your living situation today?: I have a steady place to live Within the past 12 months, did the food you bought not last and you didn't have the money to get more?: Sometimes True THRIVE Score: 1 JEMAL-7 AMB Questionnaire JEMAL-7 Date JEMAL - 7 assessed: 07/02/24 Source: Developed by Drs. Marco A Oneill, Ania Marcano, Varghese Bran and colleagues, with an educational gabriella from [employer]. Review of Systems Const All systems reviewed & are unremarkable except as noted in HPI and below Card Denies chest pain at rest, Denies chest pain with activity, Denies edema, Denies irregular heart rhythm, Denies claudication, Denies dyspnea, Denies dyspnea on exertion, Denies orthopnea, Denies paroxysmal nocturnal dyspnea and Denies slow heart rate Resp Denies cough, Denies dyspnea and Denies dyspnea on exertion Physical exam (Primary Care) Vital Signs: Last Vital Signs Temp 97.3 F 03/04/25 14:53 Pulse 66 03/04/25 14:53 Resp 18 03/04/25 14:53 BP 136/78 03/04/25 14:53 Pulse Ox 95 03/04/25 14:53 Oxygen Delivery Method Room Air 03/04/25 14:53 BMI result Body Mass Index 32.0 BMI Assessment/Plan discussion: High BMI High, discussed plan: lifestyle, weight reduction, dietary and physical activity Tobacco/Smoking Status: Tobacco use Status Tobacco use date assessed 03/04/25 03/04/25 15:05 Patient Tobacco Use Status Never used Tobacco 03/04/25 15:05 e-Cigarette/Vaping Use Never Used 03/04/25 15:05 PHQ-9: PHQ-9 Score PHQ-9: Total score 5 03/04/25 15:12 Depression Screening Interpretation: Positive Depression Screening Follow-up: Existing condition, In treatment and Follow-up Visit Requested Thrive Assessment: Date of Thrive Assessment Date Thrive assessed 03/04/25 03/04/25 15:05 Resp Effort & Inspection: normal respiratory effort Auscultation: clear to auscultation bilaterally Cardio Jugular venous distension: no JVD Rate: regular rate Rhythm: regular rhythm Heart sounds: S1 normal heart sound present and S2 normal heart sound present Extrem General: Yes full ROM Coding Level of Care Code Est Pt Level 4 (18714) Complex EM visit Add On G2211 Diagnoses Type 2 diabetes mellitus without complication, without long-term current use of insulin E11.9 Diabetes mellitus complication status: without complication Diabetes mellitus terminal operator insulin use: without terminal operator use Diabetes mellitus type: type 2 Essential hypertension I10 Pure hypercholesterolemia E78.00 Mild recurrent major depression F33.0 Additional Codes PHQ-9 - 32916 - PHQ-9 Billing: Yes ([id number]) Time Spent (min) 21 Assessment & Plan Assessment & Plan (1) Diabetes mellitus: Code(s): E11.9 - Type 2 diabetes mellitus without complications Category: Medical Qualifiers: Diabetes mellitus complication status: without complication Diabetes mellitus usp insulin use: without terminal operator use Diabetes mellitus type: type 2 Qualified Code(s): E11.9 - Type 2 diabetes mellitus without complications (2) Essential hypertension: Code(s): I10 - Essential (primary) hypertension Category: Medical (3) Pure hypercholesterolemia: Code(s): E78.00 - Pure hypercholesterolemia, unspecified Category: Medical (4) Mild recurrent major depression: Code(s): F33.0 - Major depressive disorder, recurrent, mild Category: Medical Plan Plan 1. Type 2 diabetes mellitus without complications E11.9 HCC 19 The patient's diabetes mellitus is currently managed with metformin 850 mg once daily, and his recent HbA1c of 6.2% indicates good glycemic control. He is advised to continue monitoring his blood glucose levels and maintain dietary discretion to prevent spikes. 2. Essential (primary) hypertension I10 The patient's essential hypertension is currently managed with doxazosin, which has been causing hypotension. He has been advised to reduce the dose to half to mitigate these effects and monitor his blood pressure closely. 3. Major depressive disorder, single episode, unspecified F32.9 The patient is being treated for major depressive disorder with paroxetine 20 mg daily, prescribed by his psychiatrist. He is encouraged to continue his walking routine, which he finds beneficial for his mood. 4. Hyperlipidemia, unspecified E78.5 The patient's hyperlipidemia is managed with simvastatin, although specific lipid levels were not discussed during the visit. Orders: Orders AMB Hemoglobin A1c Today Z13.9 - Encounter for screening, unspecified Medications: Discontinued doxycycline hyclate Discontinued Reason: Order 100 mg PO BID 7 days 14 caps 0RF lisinopril Discontinued Reason: Patient Completed Course 2.5 mg PO DAILY 90 days 90 tabs 1RF
== END 2025-03-04 15:31 | disposition home or self-care (01) ==
LOC: HO.HMCH 14:48
PROVIDERS: PCP Internal Medicine; Visit Provider Internal Medicine
DX: E11.9 Type 2 diabetes mellitus without complications (principal); I10 Essential (primary) hypertension; E78.00 Pure hypercholesterolemia, unspecified; F33.0 Major depressive disorder, recurrent, mild; Z13.9 Encounter for screening, unspecified

== ENCOUNTER → 2025-03-04 14:48 | Outpatient (BNVA) | payer OTHER, SELFPAY | PROVIDERS: PCP Internal Medicine; Visit Provider Internal Medicine | DX: E11.9 Type 2 diabetes mellitus without complications (principal); I10 Essential (primary) hypertension; E78.00 Pure hypercholesterolemia, unspecified; F33.0 Major depressive disorder, recurrent, mild; Z79.84 Long term (current) use of oral hypoglycemic drugs | CPT/HCPCS: 83036; 96127; 99212 ==

== ENCOUNTER 2025-04-19 12:39 | Outpatient (REF) | payer OTHER, SELFPAY | END 2025-04-19 12:40 | disposition home or self-care (01) | LOC: HO.LAB 12:39 | PROVIDERS: PCP Internal Medicine; Visit Provider Urology | DX: N39.0 Urinary tract infection, site not specified (principal) | CPT/HCPCS: 51798; 81003; 87086; 87088; 87186 ==

== ENCOUNTER 2025-04-19 12:39 | Outpatient (AMB) | payer OTHER, SELFPAY ==
--- NOTE | 2025-04-19 13:14 | MHC.OFFVIS ---
Intake Visit Reasons: 3m/med review (set)UA) Intake Note: Patient is present for 3m med review Urology Medication: Methenamine Hippurate Blood Thinner:NONE Antibiotic Allergy:None PVR:31ml Quality Improvement Engineer Required: Yes Quality Improvement Engineer Language: Weld Engineer Services: Quality Improvement Engineer Present Quality Improvement Engineer Name: [id number] Information Interpreted: non-clinical & clinical Accompanied by: Self / Same As Patient Allergies No Known Allergies Allergy (Verified 04/19/25 13:14) HPI Comments Details: 04/19/2025--refill has been followed for chronic UTIs. He was last seen in the office 01/15/2025 he was started on methenamine b.i.d. he is on Cardura for BPH symptoms bladder scan PVR 31 mL. He had a cystoscopy and bladder biopsy 12/22/2024 pathology benign and negative for atypia. Urinalysis today: Leukocytes 3+, nitrite positive, blood negative, protein 1+. 01/15/25--Miguel is being evaluated due to persistent bacteriuria and recurrent UTIs. He is status post cystoscopy bladder biopsies on 12/22/2024. I have reviewed bladder biopsy pathology-benign, negative for atypia. We will continue to monitor. The patient is off of the tamsulosin he is on Cardura/doxazosin 4 mg daily. He denies symptoms of dizziness with the use of doxazosin. We will start on methenamine 1 g b.i.d., for 3 months and then taper the methenamine dose to 1 g daily. 12/18/24-- - The patient is a 74-year-old male presenting with recurrent bladder infections. - The patient has been experiencing these infections repeatedly, prompting the need for further investigation. - The plan includes performing bladder biopsies to further investigate the cause of the infections. - The patient went back to using tamsulosin, which he reports as effective, and no longer having dizziness, will d/c alfuzosin. Results - CT Urogram: 12/10/23 Urinary tract Within Normal limits Plan - Plan to perform cysto bladder biopsies next week - Discontinue alfuzosin and continue with tamsulosin as it is reported to be effective by the patient. 11/12/24- - Recurrent urinary tract infections: The patient has recurrent urinary tract infections, U/A today nitrite positive - Microscopic hematuria, previous evaluation was within normal limits. - Will reevaluate urinary tract CT Urogram and repeat cysto out patient with possible bladder biopsies - The patient is was prescribed tamsulosin for BPH - Dizziness: The patient experienced dizziness as a side effect of tamsulosin, Patient instructed to stop tamsulosin 05/15/24-- Cystoscopy findings: prostatic urethra obstructive-bilobar enlargement, bulbous urethra WNL, no suspicious bladder lesions visualized. BPH-Continue tamsulosin. 03/27/24-FU BPH symptoms, LV -12/26/23--Miguel initially evaluated with complaints of testicular pain, he was treated for orchitis several weeks ago. He has changes in voiding, hesitency. Scrotal US 09/2023 reviewed. treated with levaquin, and started on tamsulosin. persistent irritative urinary symptoms, UA today- Nitrite positive. empirically start augmentin. Discussed results-- PSA - 03/25/24-1. Bladder US results-03/25/24--PROSTATE: Mild prostatomegaly at 36 cc--Mild BPH with trabeculated bladder wall and 39 cc postvoid residual. Renal US - 03/19/24- not transcribed by Radiologist, preliminary bilateral renal cysts, right kidney question lobulated parencyma indeterminate Will request radiologist to read. [facility] Medical History Mild recurrent major depression Chronic fatigue Back pain Depression Pure hypercholesterolemia Diabetes mellitus Essential hypertension Surgical History Hx of tooth extraction History of surgery on arm History of appendectomy Family History Father No problems noted. Mother Hypertension Stroke Maternal Aunt Diabetes Social History Housing: Apartment Are you a primary attending ambulatory care to a significant other at home: No Do you presently have visiting nurse or other home services: No Alcohol intake: never Patient Tobacco Use Status: Never used Tobacco e-Cigarette/Vaping Use: Never Used Second Hand Smoke Exposure: No service: No Current occupational status: disabled Cognitive needs: No Hearing needs: No Vision needs: Yes Review of Systems Const All systems reviewed & are unremarkable except as noted in HPI and below Reports no additional complaints Eyes Reports no additional complaints ENT Reports no additional complaints Card Reports no additional complaints Resp Reports no additional complaints GI Reports no additional complaints Reports as per HPI Musc Reports no additional complaints Skin/Breast Reports system reviewed and no additional complaints, except as documented Neuro Reports no additional complaints Psych Reports no additional complaints Endo Reports no additional complaints Anatoly/Lymph Reports no additional complaints Aller/Immun Reports no additional complaints Office Procedures Post Void Residual Post Residual Void Post Void Residual (PVR): 31 [id number] Void Residual by ultrasound Results AMB Urinalysis, Automated UA Leukoctes 500 Brittny/uL Last Edit by Adali Zapien on 04/19/25 17:14 UA Nitrite Positive Last Edit by Adali Zapien on 04/19/25 17:14 UA Urobilinogen 0.2 mg/dL Last Edit by Adali Zapien on 04/19/25 17:14 UA Protein 30 mg/dL Last Edit by Adali Zapien on 04/19/25 17:14 UA pH 6.0 Last Edit by Adali Zapien on 04/19/25 17:14 UA Blood 0 Matthew/uL Last Edit by Adali Zapien on 04/19/25 17:14 UA Specific Mckean 1.025 Last Edit by Adali Zapien on 04/19/25 17:14 UA Ketone Positive Last Edit by Adali Zapien on 04/19/25 17:14 UA Bilirubin 0 mg/dL Last Edit by Adali Zapien on 04/19/25 17:14 UA Glucose 0 mg/dL Last Edit by Adali Zapien on 04/19/25 17:14 Results Reviewed Results Reviewed: Laboratory Last Values Urine pH (Auto) 6.0 04/19/25 16:20 Specific Mckean (Auto) 1.025 04/19/25 16:20 Urine Protein (Auto) 30 mg/dL 04/19/25 16:20 Glucose (UA)(Auto) 0 mg/dL 04/19/25 16:20 Urine Ketones (Auto) Positive 04/19/25 16:20 Urine Blood (Auto) 0 Matthew/uL 04/19/25 16:20 Urine Nitrite (Auto) Positive 04/19/25 16:20 Urine Bilirubin (Auto) 0 mg/dL 04/19/25 16:20 Urine Urobilinogen (Auto) 0.2 mg/dL 04/19/25 16:20 Leukocyte Esterase (Auto) 500 Brittny/uL 04/19/25 16:20 Collected: 12/22/24 Status: JUAN Dalton#: [id number] Received: 12/22/24 Source: Urine Cath Sp Desc: Str Cath Subm Dr: Len Antunez MD Ordered: Urine Culture Procedure Result Verified Urine Culture Final 12/24/24 Organism 1 Escherichia coli Quant > 100,000 cfu/mL E coli M.I.C. RX --------- --- Ampicillin >=32 R Cefazolin (Urine) 4 S Cefepime <=0.12 S Ceftriaxone <=0.25 S Ciprofloxacin 0.5 I Gentamicin <=1 S Nitrofurantoin 64 I Trimethoprim/Sulfamethoxazole <=20 S Collected: 12/22/24 Location: [facility] Received: 12/22/24 Diagnosis A. Bladder, posterior wall, biopsy: -Benign urothelium with chronic cystitis. -No muscularis mucosa present. B. Bladder, left lateral wall, biopsy: -Scant benign urothelium. -No muscularis propria present. C. Bladder, right lateral wall, biopsy: -Benign urothelium with minimal chronic inflammation. -Muscularis propria present. Clinical History UTI, hematuria Microscopic Description Multiple microscopic sections reviewed. Material Received A. Posterior bladder wall bx B. Left lateral bladder wall bx C. Right lateral bladder wall bx Gross Description Received in 3 parts. A. Received in formalin, on Telfa, labeled ?posterior bladder wall biopsy? is a fragment of pink white soft tissue measuring 0.3 cm in greatest dimension which is wrapped in lens paper and entirely submitted for microscopic examination, 1 piece in cassette A. B. Received in formalin, on Telfa, labeled ?left lateral bladder wall biopsy? is a fragment of red-pink soft tissue measuring 0.2 cm in greatest dimension which is wrapped in lens paper and entirely submitted for microscopic examination, 1 piece in cassette B. C. Received in formalin, on Telfa, labeled ?right lateral bladder wall biopsy? is a fragment of pink white soft tissue measuring 0.2 cm in greatest dimension which is wrapped in lens paper and entirely submitted for microscopic examination, 1 piece in cassette C. ([facility]) Patient: Miguel Simental Age/Sex: 74/M MR#: [id number] Page 1 of 2 Date of Service: 12/09/24 CLINICAL HISTORY: R31.9 - Hematuria, unspecified CT abdomen and pelvis with and without contrast Comparison: None available Findings: No consolidation at the lung bases. Question trace amount of honeycombing at the right lung base. Unremarkable gallbladder. Underdistended bladder. No bladder stone or focal wall thickening. No hydronephrosis or nephrolithiasis. Lobular contour of the kidneys could be secondary to scarring. There are numerous bilateral subcentimeter low attenuating renal lesions which are too small to characterize. 5 mm hyperattenuating right renal lesion, indeterminate however favored to be a complex cyst ( series 5, image 72 and series 6, image 102 ). It is not well seen on the postcontrast images, likely due to its small size. The kidneys excrete contrast symmetrically. The prostate is nonenlarged, measuring 3.9 cm in transverse dimension. There are large amount of calcifications within the prostate. The other solid organs are unremarkable. No bowel wall thickening or dilation. The appendix is not visualized. No secondary signs of acute appendicitis. Colonic diverticulosis. No aneurysm. Ectasia is the infrarenal abdominal aorta which measures up to 2.8 cm. Ectasia bilateral common iliac arteries, measuring up to 1.8 cm. Moderate calcified atherosclerotic disease. No lymphadenopathy. No ascites. No acute osseous abnormality. Grade 1 anterolisthesis of L4 on L5, degenerative. Impression: No findings to explain the patient's presentation with hematuria. Date of Service: 03/25/24 US PELVIS LIMITED (BLADDER) CLINICAL INFORMATION: BPH. COMPARISON: None available. TECHNIQUE: Real-time imaging of the bladder. FINDINGS: BLADDER: Well distended and normal. Bladder wall was trabeculated. Bilateral ureteral jets are demonstrated. Prevoid bladder volume is 261 mL. Postvoid bladder volume is 39 mL. PROSTATE: Mild prostatomegaly at 36 cc IMPRESSION: Mild BPH with trabeculated bladder wall and 39 cc postvoid residual. Date of Service: 10/18/23 US SCROTUM CLINICAL INFORMATION: Testicular pain, unspecified. COMPARISON: None available. TECHNIQUE: A sonogram of the scrotum was performed assessing reyna-scale appearance and color Doppler flow. Spectral Doppler analysis of the arterial and venous flow were performed in the testes bilaterally. FINDINGS: RIGHT: Right testicle measures 4.0 x 2.7 x 3.0 cm, volume 17.4 mL. Parenchymal echotexture is heterogeneous. No focal testicular parenchymal lesions are visualized. Spectral Doppler analysis of the arterial and venous flow is increased in the right testis. Right epididymal head is normal in size. No right varicocele is seen. There is a mildly complex right hydrocele. LEFT: Left testicle measures 5.1 x 2.0 x 2.5 cm, volume 13.0 mL. Parenchymal echotexture is heterogeneous. No focal testicular parenchymal lesions are visualized. Spectral Doppler analysis of the arterial and venous flow is normal in the left testis. Left epididymal head is normal size. 0.4 x 0.3 x 0.4 cm epididymal head cyst is seen. No left hydrocele or varicocele is seen. IMPRESSION: 1. Mildly heterogeneous testicles without a focal abnormality. 2. Mild increased vascularity of the right testicle. 3. Mildly complex right hydrocele. 4. 0.4 cm left epididymal head cyst. Assessment & Plan Assessment & Plan Orders: Orders Urine Culture Today N39.0 - Urinary tract infection, site not specified AMB Urinalysis Automated Today Z13.9 - Encounter for screening, unspecified AMB Post Void Residual by ultrasound Today N39.0 - Urinary tract infection, site not specified, R39.9 - Unspecified symptoms and signs involving the genitourinary system Medications: New sulfamethoxazole-trimethoprim 400-80 mg (Bactrim) Start after completing the Bactrim DS BID dosing for 5 days 1 tab PO DAILY 90 tabs 0RF sulfamethoxazole-trimethoprim 800-160 mg (Bactrim DS) 1 tab PO BID 10 tabs 0RF 5 days Discontinued methenamine hippurate Discontinued Reason: Doctor's Order 1 g PO BID 60 tabs 2RF Coding Level of Care Code Complex visit Add On G2211 CPT Codes Post Residual Void - PVR CPT Code: 86176-Oyfw Void Residual by ultrasound ([id number])
== END 2025-04-19 13:53 | disposition home or self-care (01) ==
PROVIDERS: PCP Internal Medicine; Visit Provider Urology
DX: Z13.9 Encounter for screening, unspecified (principal)